=== PATIENT | male | born 1960 | race Caucasian/White ===

== ENCOUNTER → 2016-12-17 | Outpatient (CLI) | payer OTHER ==
--- NOTE | 2016-12-17 16:42 | CT ---
EXAMINATION TYPE: CT chest wo con DATE OF EXAM: 12/17/2016 1:53 PM COMPARISON: 01/31/2015 HISTORY: Patient complains of difficulty breathing. CT DLP: 863 mGycm, Automated exposure control for dose reduction was used. CONTRAST: None TECHNIQUE: Axial images were obtained at 5 mm thick sections. Reconstructed images are reviewed on [employer] computer in the coronal plane. FINDINGS: Portion of the thyroid visualized is normal. Pneumonitis change may be at the left base. Underlying small masses may be present. Some mild peribro nchial thickening is not excluded in the lower lung dee. Remainder of the chest is clear There is a 1.2 cm lymph node in the pretracheal space near the level of the parvin. A few small shod dy lymph nodes are the pretracheal space more superior. A 1.1 cm subcarinal lymph node may be present . Calcified lymph node may be present in the aortopulmonic window and left perihilar region. The asce nding aorta diameter at the level of the main pulmonary artery is 3.1 cm. The main pulmonary artery diameter at the bifurcation is 2.[address] sections are obtained through the upper abdomen. There is mild fatty infiltration througho ut the liver. Findings within the chest are an interval finding. If there is sufficient clinical suspicion, PET sca n could be performed to evaluate for neoplasm. The left basilar findings however borderline in size with the largest measuring 0.8 cm which is near the threshold for PET visualization IMPRESSIONS: 1. Pneumonitis and/or focal nodularity just above the left diaphragm. Finding is nonspecific. Atelect asis pneumonia and masses within the differential. Follow-up to clearing is recommended. 2. Mildly prominent lymph nodes within the mediastinum.
== END | disposition home or self-care (01) ==
LOC: RADCTMAIN 13:33
PROVIDERS: ATTEND Internal Medicine Pulmonary Disease
DX: J18.9 Pneumonia, unspecified organism (principal)
CPT/HCPCS: 71250

== ENCOUNTER → 2016-12-31 | Outpatient (CLI) | payer OTHER ==
[2017-01-04 08:20] LABS: Cotinine 302.6 ng/mL (<2.0); Nicotine 19.8 ng/mL (<2.0)
== END | disposition home or self-care (01) ==
LOC: LABWHC1 10:26
PROVIDERS: ATTEND Internal Medicine Pulmonary Disease
DX: F17.200 Nicotine dependence, unspecified, uncomplicated (principal)
CPT/HCPCS: 36415; G0480; 80323

== ENCOUNTER → 2017-04-12 | Outpatient (CLI) | payer OTHER ==
--- NOTE | 2017-04-14 10:40 | ECHOF ---
Referral Reason:I25.10 cardiovascular disease MEASUREMENTS -------- HEIGHT: 177.8 cm WEIGHT: 111.1 kg BP: 128/63 RVIDd: 3.5 cm (< 3.3) IVSd: 1.0 cm (0.6 - 1.1) LVIDd: 5.3 cm (3.9 - 5.3) LVPWd: 1.0 cm (0.6 - 1.1) IVSs: 1.4 cm LVIDs: 3.3 cm LVPWs: 1.4 cm LA Diam: 3.4 cm (2.7 - 3.8) LAESV Index (A-L): 14.58 ml/m Ao Diam: 3.5 cm (2.0 - 3.7) AV Cusp: 2.1 cm (1.5 - 2.6) MV EXCURSION: 11.800 mm (> 18.000) MV EF SLOPE: 100 mm/s (70 - 150) EPSS: 0.7 cm MV E Maikel: 1.24 m/s MV DecT: 185 ms MV A Maikel: 0.78 m/s MV E/A Ratio: 1.59 AV maxP.37 mmHg AV meanP.64 mmHg RAP: 5.00 mmHg RVSP: 25.41 mmHg FINDINGS -------- Sinus rhythm. This was a technically adequate study. The left ventricular size is normal. Left ventricular wall thickness is normal. Overall left ventricular systolic function is normal with, an EF between 60 - 65 %. The right ventricle is mildly enlarged. Normal LA size by volume 22+/-6 ml/m2. The right atrium was not well visualized. Aortic valve is trileaflet and is mildly thickened. Mild mitral annular calcification present. Trace tricuspid regurgitation present. Right ventricular systolic pressure is normal at < 35 mmHg. The pulmonic valve was not well visualized. The aortic root size is normal. IVC Not well visulized. The pericardium is normal. CONCLUSIONS -------- 1. Sinus rhythm. 2. Mild mitral annular calcification present. 3. Trace tricuspid regurgitation present. 4. Right ventricular systolic pressure is normal at < 35 mmHg. 5. The pulmonic valve was not well visualized. 6. The aortic root size is normal. 7. IVC Not well visulized. 8. The pericardium is normal. 9. This was a technically adequate study. 10. The left ventricular size is normal. 11. Left ventricular wall thickness is normal. 12. Overall left ventricular systolic function is normal with, an EF between 60 - 65 %. 13. The right ventricle is mildly enlarged. 14. Normal LA size by volume 22+/-6 ml/m2. 15. The right atrium was not well visualized. 16. Aortic valve is trileaflet and is mildly thickened. CONDITIONING MACHINE OPERATOR: Leslee Hood RDCS
== END | disposition home or self-care (01) ==
LOC: RADECHMAIN 11:35
PROVIDERS: ATTEND Family Medicine
DX: I07.1 Rheumatic tricuspid insufficiency (principal); I35.8 Other nonrheumatic aortic valve disorders; I05.9 Rheumatic mitral valve disease, unspecified; I25.10 Atherosclerotic heart disease of native coronary artery without angina pectoris
CPT/HCPCS: 93306

== ENCOUNTER → 2018-02-24 | Outpatient (CLI) | payer OTHER ==
--- NOTE | 2018-02-25 10:06 | CT ---
EXAMINATION TYPE: CT lumbar spine wo con DATE OF EXAM: 02/24/2018 COMPARISON: Prior lumbar spine CT 01/29/2015 HISTORY: Patient complains of continued low back pain. CT DLP: 975 mGycm Automated exposure control for dose reduction was used. An unenhanced CT of the lumbar spine was performed. Bone and soft tissue window settings are submitt ed as well as coronal and sagittal reconstructions. FINDINGS: Similar to prior exam. Multilevel spondylosis is present. Loss of disc height present L5-S1, L4-5, L3 -4. Posterior spinal fusion changes as present as on prior exam, L4-5 and S1. Vertebral body height a nd alignment are maintained. There is a mild spinal curvature. Multilevel laminectomies present at th e levels of patient's spinal fusion as on prior exam. Liver shows low attenuation possibly due to hep atic steatosis. L1-L2: Posterior extension of endplate disc complex effaces the anterior thecal sac, no significant s jony stenosis or foraminal encroachment. L2-L3: There is facet arthropathy change. No significant central stenosis or foraminal encroachment. No obvious disc herniation. L3-L4: Facet arthropathy causes some posterior lateral mass effect on the thecal sac, lateral recess greater on the right than on the left. No significant foraminal encroachment or central canal stenosi s. L4-L5: Similar to prior exam there is posterior extension of endplate disc complex possibly contact t he anterior thecal sac. L5-S1: Stable degenerative disc changes are present, posterior extension of endplate disc complex flowers s not show significant spinal stenosis but could possibly contact the proximal S1 nerve roots. There is artifact that limits evaluation of the spinal canal. Lateral extension endplate disc complex compr omises the foramina somewhat as on prior exam. IMPRESSION: No paraspinal masses are identified. Lumbar segments are intact. Postop changes, facet arthropathy, degenerative disc disease are similar to prior exam.
== END ==
LOC: RADCTMAIN 17:46
PROVIDERS: ATTEND Family Medicine
DX: M51.36 Other intervertebral disc degeneration, lumbar region (principal); M46.96 Unspecified inflammatory spondylopathy, lumbar region; Z98.890 Other specified postprocedural states; Z88.6 Allergy status to analgesic agent
CPT/HCPCS: 72131

== ENCOUNTER → 2018-04-05 | Outpatient (CLI) | payer OTHER ==
--- NOTE | 2018-04-05 14:50 | CT ---
EXAMINATION TYPE: CT chest w con DATE OF EXAM: 04/05/2018 COMPARISON: CT chest June 19, 2017 HISTORY: Alpha 1-antitrypsin [id number] COPD R06.02 SOB all per order. Wheezing during visits wi th physician. CT DLP: 724.3 mGycm. Automated Exposure Control for Dose Reduction was Utilized. TECHNIQUE: CT scan of the thorax is performed following with IV Contrast, patient injected with 100 mL of Isovue 300. FINDINGS: LUNGS: The lungs are grossly clear, there is no concerning parenchymal mass or nodule identified on c urrent study. Interval resolution of focal nodular opacities left lung base from prior CT. There is no pleural effusion or pneumothorax seen. The tracheobronchial tree is patent. MEDIASTINUM: There are no greater than 1 cm hilar or mediastinal lymph nodes. No cardiomegaly or pe ricardial effusion is seen. OTHER: Liver is diffusely low dense consistent with fatty infiltration is redemonstrated. There is mo derate to severe multilevel spurring in the thoracic spine. Bilateral gynecomastia is again seen. IMPRESSION: No significant acute or chronic pulmonary process on current exam.
== END | disposition home or self-care (01) ==
LOC: RADCTMAIN 13:35
PROVIDERS: ATTEND Family Medicine
DX: J44.9 Chronic obstructive pulmonary disease, unspecified (principal); E88.01 Alpha-1-antitrypsin deficiency; Z88.6 Allergy status to analgesic agent
CPT/HCPCS: 71260; Q9967

== ENCOUNTER 2020-07-03 19:01 | Inpatient (IN) | payer OTHER ==
[2020-07-03] MEDS ORDERED: IPRATROPIUM-ALBUTEROL 3 ML NEB INHALATION STA (19:17)
[2020-07-03] MEDS ORDERED: methylPREDNISolone SOD SUCCI 125 MG/2 ML VIAL IV STA (19:17)
--- NOTE | 2020-07-03 19:26 | ED ---
General Adult HPI - General Chief complaint: Shortness of Breath Stated complaint: SOB Time Seen by Provider: 07/03/20 19:13 Source: patient, EMS, RN notes reviewed Mode of arrival: EMS Limitations: no limitations - History of Present Illness Initial comments: Patient is a pleasant 59-year-old male presenting to the emergency Department with complaints of difficulty in breathing. Patient is a poor historian. Patient was smoking when EMS arrived with low pulse ox of 60. Patient amiss to having a cough recently with occasional white or brown sputum. No leg pain or leg swelling. No chest pain. Patient does have history of chronic lung problems, COPD with similar symptoms. - Related Data Home Medications Medication Instructions Recorded Confirmed Baclofen [Lioresal] 20 mg PO HS 02/04/15 05/02/15 HYDROcodone/APAP 10-325MG [[place] 1 each PO Q6H PRN 02/04/15 05/02/15 10] Albuterol Nebulized [Ventolin 1 applic INHALATION DIRECTED PRN 05/01/15 05/02/15 Nebulized] Ergocalciferol [Vitamin D2 50,000 unit PO WE 05/01/15 05/02/15 (DRISDOL)] HYDROcodone/APAP 10-325MG [[place] 1 tab PO DIRECTED PRN 05/01/15 05/02/15 10-325] hydroCHLOROthiazide 25 mg PO DIRECTED PRN 05/01/15 05/02/15 Previous Rx's Medication Instructions Recorded HYDROcodone/APAP 7.5-325MG [[place] 1 each PO Q4H PRN #60 tab 05/02/15 7.5] Allergies Allergy/AdvReac Type Severity Reaction Status Date / Time ibuprofen Allergy Swelling, Verified 07/03/20 19:23 RASH Review of Systems ROS Statement: Those systems with pertinent positive or pertinent negative responses have been documented in the HPI. ROS Other: All systems not noted in ROS Statement are negative. Constitutional: Denies: fever Eyes: Denies: eye pain ENT: Denies: ear pain Respiratory: Reports: cough, dyspnea Cardiovascular: Denies: chest pain Endocrine: Reports: fatigue Gastrointestinal: Denies: abdominal pain Genitourinary: Denies: dysuria Musculoskeletal: Denies: back pain Skin: Denies: rash Neurological: Denies: weakness Past Medical History Past Medical History: COPD Additional Past Medical History / Comment(s): CHRONIC BACK PAIN, OMAR HERNIA, GO [place], OCCASIONAL PERIPHERAL EDEMA History of Any Multi-Drug Resistant Organisms: None Reported Past Surgical History: Back Surgery Additional Past Surgical History / Comment(s): METAL IN BACK, SURGERY TO OPEN "BLOCKED PENIS" X2 HAS STENT Past Anesthesia/Blood Transfusion Reactions: No Reported Reaction Past Psychological History: No Psychological Hx Reported Smoking Status: Current every day smoker Past Alcohol Use History: Occasional Past Drug Use History: None Reported - Past Family History Mother Family Medical History: No Reported History General Exam Limitations: no limitations General appearance: alert Head exam: Present: normocephalic Eye exam: Present: normal appearance Neck exam: Present: normal inspection Respiratory exam: Present: respiratory distress, wheezes, decreased breath sounds Cardiovascular Exam: Present: regular rate, normal rhythm GI/Abdominal exam: Present: soft. Absent: tenderness Extremities exam: Present: normal inspection Neurological exam: Present: alert Psychiatric exam: Present: normal affect, normal mood Skin exam: Present: normal color Course Vital Signs 07/03/20 07/03/20 07/03/20 19:15 19:20 19:23 Temperature 98.9 F Pulse Rate 110 H 101 H Respiratory 29 H 25 H 22 Rate Blood Pressure 151/78 O2 Sat by Pulse 93 L Oximetry 07/03/20 07/03/20 07/03/20 19:30 20:04 20:58 Temperature Pulse Rate 106 H 87 86 Respiratory 22 24 25 H Rate Blood Pressure 151/78 147/91 O2 Sat by Pulse 92 L 91 L Oximetry EKG Findings - EKG Comments: EKG Findings:: Sinus tachycardia 103. NE 124. QRS 82. QT 320. QTC 419. Normal axis. Normal QRS. No acute ST change. Medical Decision Making - Medical Decision Making Patient reevaluated and somewhat improved. Patient and family updated on results and plan. Case was discussed in detail with Dr. Avalos, who will admit oren whittaker for Dr. Dowd. She also requests consult with Dr. Kim(pulmonary) and Jennifer. - Lab Data Result diagrams: 07/03/20 19:24 07/03/20 19:24 Lab Results 07/03/20 07/03/20 07/03/20 Range/Units 19:24 19:24 19:24 WBC 9.2 (3.8-10.6) k/uL RBC 5.61 (4.30-5.90) m/uL Hgb 17.3 (13.0-17.5) gm/dL Hct 58.3 H* (39.0-53.0) % MCV 104.0 H (80.0-100.0) fL MCH 30.9 (25.0-35.0) pg MCHC 29.7 L (31.0-37.0) g/dL RDW 13.9 (11.5-15.5) % Plt Count 135 L (150-450) k/uL Neutrophils % 76 % Lymphocytes % 11 % Monocytes % 9 % Eosinophils % 1 % Basophils % 1 % Neutrophils # 7.0 (1.3-7.7) k/uL Lymphocytes # 1.0 (1.0-4.8) k/uL Monocytes # 0.8 (0-1.0) k/uL Eosinophils # 0.1 (0-0.7) k/uL Basophils # 0.1 (0-0.2) k/uL Hypochromasia Marked Poikilocytosis Slight Macrocytosis Slight Sodium 134 L (137-145) mmol/L Potassium 5.4 H (3.5-5.1) mmol/L Chloride 91 L (98-107) mmol/L Carbon Dioxide 38 H (22-30) mmol/L Anion Gap 3 mmol/L BUN 14 (9-20) mg/dL Creatinine 0.52 L (0.66-1.25) mg/dL Est GFR (CKD-EPI)AfAm >90 (>60 ml/min/1.73 sqM) Est GFR (CKD-EPI)NonAf >90 (>60 ml/min/1.73 sqM) Glucose 114 H (74-99) mg/dL Plasma Lactic Acid Prakash 1.3 (0.7-2.0) mmol/L Calcium 8.3 L (8.4-10.2) mg/dL Total Bilirubin 1.3 (0.2-1.3) mg/dL AST 42 (17-59) U/L ALT 21 (4-49) U/L Alkaline Phosphatase 96 (38-126) U/L NT-Pro-B Natriuret Pep pg/mL Total Protein 7.7 (6.3-8.2) g/dL Albumin 3.8 (3.5-5.0) g/dL 07/03/20 Range/Units 19:24 WBC (3.8-10.6) k/uL RBC (4.30-5.90) m/uL Hgb (13.0-17.5) gm/dL Hct (39.0-53.0) % MCV (80.0-100.0) fL MCH (25.0-35.0) pg MCHC (31.0-37.0) g/dL RDW (11.5-15.5) % Plt Count (150-450) k/uL Neutrophils % % Lymphocytes % % Monocytes % % Eosinophils % % Basophils % % Neutrophils # (1.3-7.7) k/uL Lymphocytes # (1.0-4.8) k/uL Monocytes # (0-1.0) k/uL Eosinophils # (0-0.7) k/uL Basophils # (0-0.2) k/uL Hypochromasia Poikilocytosis Macrocytosis Sodium (137-145) mmol/L Potassium (3.5-5.1) mmol/L Chloride (98-107) mmol/L Carbon Dioxide (22-30) mmol/L Anion Gap mmol/L BUN (9-20) mg/dL Creatinine (0.66-1.25) mg/dL Est GFR (CKD-EPI)AfAm (>60 ml/min/1.73 sqM) Est GFR (CKD-EPI)NonAf (>60 ml/min/1.73 sqM) Glucose (74-99) mg/dL Plasma Lactic Acid Prakash (0.7-2.0) mmol/L Calcium (8.4-10.2) mg/dL Total Bilirubin (0.2-1.3) mg/dL AST (17-59) U/L ALT (4-49) U/L Alkaline Phosphatase (38-126) U/L NT-Pro-B Natriuret Pep 506 pg/mL Total Protein (6.3-8.2) g/dL Albumin (3.5-5.0) g/dL - Radiology Data Radiology results: image reviewed (Chest x-ray shows moderate pleural effusion) Disposition Clinical Impression: Acute exacerbation of chronic obstructive pulmonary disease, Pleural effusion Disposition: ADMITTED IP TO THIS HOSP Is patient prescribed a controlled substance at d/c from ED?: No Referrals: Ric Mcgarry DO [Primary Care Provider] - 1-2 days Decision Time: 21:29
[2020-07-03 20:02] LABS: ALT 21 U/L (4-49); AST 42 U/L (17-59); African American GFR (CKD) >90 (>60 ml/min/1.73 sqM); Albumin 3.8 g/dL (3.5-5.0); Alkaline Phosphatase 96 U/L (38-126); Anion Gap 3 mmol/L; Blood Urea Nitrogen 14 mg/dL (9-20); Calcium 8.3 mg/dL (8.4-10.2); Chloride 91 mmol/L (98-107); Glucose 114 mg/dL (74-99); Non-African American GFR(CKD) >90 (>60 ml/min/1.73 sqM); Potassium 5.4 mmol/L (3.5-5.1); Sodium 134 mmol/L (137-145); Total Bilirubin 1.3 mg/dL (0.2-1.3); Total Protein 7.7 g/dL (6.3-8.2)
[2020-07-03 20:08] LABS: Carbon Dioxide 38 mmol/L (22-30)
[2020-07-03 20:17] LABS: Basophils # (A) 0.1 k/uL (0-0.2); Basophils % (A) 1 %; Eosinophils # (A) 0.1 k/uL (0-0.7); Eosinophils % (A) 1 %; HGB 17.3 gm/dL (13.0-17.5); Hypochromasia Marked; Lymphocytes % (A) 11 %; MCH 30.9 pg (25.0-35.0); MCHC 29.7 g/dL (31.0-37.0); Macrocytosis Slight; Mean Platelet Volume 8.7; Monocytes # (A) 0.8 k/uL (0-1.0); Monocytes % (A) 9 %; Neutrophils % (A) 76 %; Platelet Count 135 k/uL (150-450); Poikilocytosis Slight; RBC 5.61 m/uL (4.30-5.90); RDW 13.9 % (11.5-15.5); WBC 9.2 k/uL (3.8-10.6)
[2020-07-03 20:20] LABS: HCT 58.3 % (39.0-53.0)
--- NOTE | 2020-07-03 20:57 | XR ---
EXAMINATION TYPE: XR chest 2V DATE OF EXAM: 07/03/2020 COMPARISON: None INDICATION: Difficulty breathing TECHNIQUE: Frontal and lateral views of the chest are obtained. FINDINGS: The heart size is normal. The pulmonary vasculature is prominent. Moderate right pleural effusion is present.. IMPRESSION: 1. Right pleural effusion.
[2020-07-03] MEDS ORDERED: IPRATROPIUM-ALBUTEROL 3 ML NEB INHALATION PRN (21:30)
[2020-07-03 21:31] LABS: INR 1.1 (<1.2)
[2020-07-03] MEDS ORDERED: BACLOFEN 10 MG TAB PO SCH (23:45)
[2020-07-04] MEDS: HYDROcodone/APAP 10-325MG 1 EACH TAB PO PRN ×2 (00:01→20:37)
[2020-07-04] MEDS: ATORVASTATIN 40 MG TAB PO SCH ×2 (00:01→20:40)
[2020-07-04] MEDS: CARBIDOPA-LEVODOPA 25-100 MG 1 EACH TAB PO SCH ×2 (00:01→20:40)
[2020-07-04] MEDS: methylPREDNISolone SOD SUCCI 125 MG/2 ML VIAL IV SCH ×4 (00:02→17:55)
[2020-07-04 00:49] LABS: Appearance,Urine Clear (Clear); Bilirubin,Urine 1+ (Negative); Blood,Urine Negative (Negative); Color,Urine Yellow; Glucose,Urine (UA) Negative (Negative); Hyaline Casts,Urine 1 /lpf (0-2); Ketones,Urine 1+ (Negative); Leukocyte Esterase,Urine Negative (Negative); Mucus,Urine Occasional /hpf; Nitrite,Urine Negative (Negative); Protein,Urine 1+ (Negative); RBC,Urine 1 /hpf (0-5); Specific Gravity,Urine 1.026 (1.001-1.035); Squamous Epithelial Cell,Urine <1 /hpf (0-4); WBC,Urine <1 /hpf (0-5)
[2020-07-04] MEDS ORDERED: LORazepam 2 MG/ML INJ IV STA ×2 (06:01→06:19)
[2020-07-04] MEDS: IPRATROPIUM-ALBUTEROL 3 ML NEB INHALATION SCH ×4 (07:27→19:42)
[2020-07-04] MEDS: NICOTINE 21MG/24HR PATCH TRANSDERM SCH (09:04)
[2020-07-04 11:18] LABS: ABG Base Excess 20.8 mmol/L; ABG Oxygen Saturation 89.8 % (94-97); ABG PH 7.27 (7.35-7.45); ABG PO2 61 mmHg (83-108); ABG TCO2 51 mmol/L (19-24); Allen Test Performed? Yes
--- NOTE | 2020-07-04 11:28 | P.HPIM ---
History of Present Illness H&P Date: 07/04/20 Chief Complaint: MAX HISTORY OF PRESENT ILLNESS This is a 59-year-old obese male patient of Dr. Mcgarry and Dr. ROSALBA Ott with past medical history of COPD, possible alpha-1 antitrypsin deficiency--will need to clarify, probable obstructive sleep apnea on oxygen at night, tobacco use and dependence, daily alcohol use, chronic back pain. Patient apparently developed increasing difficulty with breathing and EMS was called to his home phone pulse ox to be 60. Patient had some recent white or brown sputum production. Patient was afebrile, heart rate 110, blood pressure 151/78, pulse ox 93%, respiratory rate 29. EKG was a sinus tachycardia with no acute ST changes. WBC 9.2, hemoglobin 17.3, hematocrit 0.3, platelet count 135. Sodium 134, potassium 5.4, chloride 91, CO2 38, BUN 14 and creatinine 0.52. Blood sugar 114. Liver function tests normal. ProBNP 506. Chest x-ray reveals right pleural effusion. Patient was started on Solu-Medrol, DuoNeb treatments. Patient apparently was agitated in the emergency center and received 2 doses of Ativan IV 1 mg each 20 minutes apart. Patient was brought up to the cardiac stepdown unit and has been sleeping and unable to be awakened. He is currently on BiPAP. REVIEW OF SYSTEMS Unable to obtain due to patient's mental status. SOCIAL HISTORY Patient is a smoker 2 packs per day for 40 years. Patient drinks 7-10 beers per day for 40 years. He lives at home with his . He has a nebulizer at home. He has home O2 that he uses at night. No CPAP at home. FAMILY HISTORY Father at age 74 from some type of cancer. Mother is alive at age 82 with no major medical problems. Patient has 3 siblings. One is from a fall. Other siblings have no major medical problems. Patient has 4 children with no major medical problems. PHYSICAL EXAMINATION Gen: This is a 59-year-old obese male patient. He is resting in bed with BiPAP in place. He does not appear to be in any respiratory distress. HEENT: Head is atraumatic, normocephalic. Pupils equal, round. Sclerae is a nicteric. NECK: Supple. No JVD. No lymphadenopathy. No thyromegaly. LUNGS: Diminished with inspiratory and expiratory wheezes, rhonchi. No intercostal retractions. HEART: Regular rate and rhythm. No murmur. ABDOMEN: Soft. Bowel sounds are present. No masses. No tenderness. EXTREMITIES: No pedal edema. No calf tenderness. NEUROLOGICAL: Patient is somnolent and unable to wake up with verbal stimuli. ASSESSMENT AND PLAN 1. Acute on chronic hypoxic and hypercapnic respiratory failure secondary to pleural effusion, COPD exacerbation, obstructive sleep apnea. Consult with pulmonary medicine. Continue DuoNeb treatments 4 times daily and every 4 hours as needed, Lasix 40 mg IV every 8 hours, Solu-Medrol 60 mg IV every 6 hours, Pulmicort twice daily. 2. Chronic hypoxic respiratory failure. Patient apparently is to wear oxygen around the clock but only uses at nighttime at 2 L. 3. Suspected obstructive sleep apnea. 4. Polycythemia. Repeat CBC tomorrow. 5. Thrombocytopenia of unclear etiology. 6. Somnolent secondary to 2 doses of IV Ativan. Monitor closely. 7. Tobacco use and dependence. Nicotine patch. 8. Hyperlipidemia. Continue Lipitor 40 mg at bedtime. 9. Chronic back pain. Continue baclofen at reduced dose of 10 mg at bedtime as needed. Hold [place] 10. 10. Chronic gout. Continue allopurinol. 11. Parkinson's disease. Continue Sinemet one at bedtime. 12. Alcohol abuse. Reassess tomorrow. Most likely patient will need to be on CIWA protocol. 13. DVT prophylaxis. Heparin subcu. 14. GI prophylaxis. Protonix. Patient will be admitted to the hospital for a minimum of 2 night stay. Discharge plan: To be determined. Impression and plan of care have been directed as dictated by the signing physician. Janette Jiménez nurse practitioner acting as scribe for signing physician. Past Medical History Past Medical History: COPD Additional Past Medical History / Comment(s): CHRONIC BACK PAIN, OMAR HERNIA, GOUT, OCCASIONAL PERIPHERAL EDEMA History of Any Multi-Drug Resistant Organisms: None Reported Past Surgical History: Back Surgery Additional Past Surgical History / Comment(s): METAL IN BACK, SURGERY TO OPEN "BLOCKED PENIS" X2 HAS STENT Past Anesthesia/Blood Transfusion Reactions: No Reported Reaction Past Psychological History: No Psychological Hx Reported Smoking Status: Current every day smoker Past Alcohol Use History: Occasional Past Drug Use History: None Reported - Past Family History Mother Family Medical History: No Reported History Medications and Allergies Home Medications Medication Instructions Recorded Confirmed Type Baclofen [Lioresal] 20 mg PO HS 02/04/15 07/03/20 History Albuterol Nebulized [Ventolin 2.5 mg INHALATION RT-QID PRN 05/01/15 07/03/20 History Nebulized] Ergocalciferol [Vitamin D2 50,000 unit PO WE 05/01/15 07/03/20 History (DRISDOL)] HYDROcodone/APAP 10-325MG [[place] 1 tab PO QID 05/01/15 07/03/20 History 10-325] Albuterol Inhaler [Ventolin Hfa 2 puff INHALATION RT-QID PRN 07/03/20 07/03/20 History Inhaler] Allopurinol [Zyloprim] 300 mg PO DAILY 07/03/20 07/03/20 History Carbidopa-Levodopa 25-100 mg 1 tab PO HS 07/03/20 07/03/20 History [Sinemet 25-100] Furosemide [Lasix] 40 mg PO BID 07/03/20 07/03/20 History Magnesium Oxide [Mag-Ox] 250 mg PO DAILY 07/03/20 07/03/20 History Naproxen [Naprosyn] 500 mg PO BID 07/03/20 07/03/20 History Simvastatin 40 mg PO HS 07/03/20 07/03/20 History Beclomethasone Dip 80 Mcg/Puff 1 puff INHALATION RT-BID 07/04/20 07/04/20 History [Qvar 80 mcg] Allergies Allergy/AdvReac Type Severity Reaction Status Date / Time ibuprofen Allergy Swelling, Verified 07/03/20 22:53 RASH Physical Exam Vitals: Vital Signs Temp Pulse Resp BP Pulse Ox 07/04/20 07:46 94 07/04/20 07:35 90 07/04/20 06:45 81 91 L 07/04/20 06:28 90 89 L 07/04/20 06:00 92 167/86 89 L 07/04/20 04:39 77 18 166/90 91 L 07/04/20 00:16 98.2 F 07/04/20 00:00 91 24 151/93 92 L 07/03/20 23:30 87 30 H 144/67 07/03/20 23:00 83 31 H 168/86 07/03/20 22:30 96 34 H 129/64 88 L 07/03/20 22:00 81 26 H 143/87 91 L 07/03/20 21:30 84 22 149/82 94 L 07/03/20 21:00 84 26 H 147/91 90 L 07/03/20 20:58 86 25 H 147/91 91 L 07/03/20 20:30 87 19 151/78 93 L 07/03/20 20:04 87 24 151/78 92 L 07/03/20 20:00 93 25 H 151/78 92 L 07/03/20 19:30 106 H 22 151/78 92 L 07/03/20 19:23 101 H 22 07/03/20 19:20 25 H 07/03/20 19:15 98.9 F 110 H 29 H 151/78 93 L 07/03/20 19:13 88 L Intake and Output 07/03/20 07/04/20 07/04/20 22:59 06:59 14:59 Other: Weight 112.491 kg Results CBC & Chem 7: 07/05/20 03:40 07/05/20 03:40 Labs: Abnormal Lab Results - Last 24 Hours (Table) 07/03/20 07/03/20 07/04/20 Range/Units 19:24 19:24 00:23 Hct 58.3 H* (39.0-53.0) % MCV 104.0 H (80.0-100.0) fL MCHC 29.7 L (31.0-37.0) g/dL Plt Count 135 L (150-450) k/uL Sodium 134 L (137-145) mmol/L Potassium 5.4 H (3.5-5.1) mmol/L Chloride 91 L (98-107) mmol/L Carbon Dioxide 38 H (22-30) mmol/L Creatinine 0.52 L (0.66-1.25) mg/dL Glucose 114 H (74-99) mg/dL Calcium 8.3 L (8.4-10.2) mg/dL Urine Protein 1+ H (Negative) Urine Ketones 1+ H (Negative) Urine Bilirubin 1+ H (Negative) Urine Mucus Occasional H (None) /hpf
[2020-07-04 11:53] LABS: Glucose,Whole Blood 136 mg/dL (75-99)
[2020-07-04 12:27] LABS: ABG HCO3 48 mmol/L (21-25); ABG PCO2 104 mmHg (35-45)
[2020-07-04] MEDS ORDERED: INSULIN ASPART (NovoLOG) 100 UNIT/ML VIAL SQ SCH (12:30)
[2020-07-04 12:32] LABS: Partial Thromboplastin Time 22.7 sec (22.0-30.0)
--- NOTE | 2020-07-04 12:52 | P.CNPUL ---
History of Present Illness Consult date: 07/04/20 Requesting physician: Mckenzie Avalos Reason for consult: other (Acute hypoxic and hypercapnic respiratory failure) Chief complaint: Shortness of breath History of present illness: This is a 59-year-old white male with history of COPD, possible alpha-1 antitrypsin deficiency, history of obstructive sleep apnea syndrome, patient uses oxygen at night. History of alcohol abuse, alcoholism, chronic back pain, patient was brought in by EMS early this morning with complaints of increased shortness of breath. Upon EMS arrival to his house his pulse ox was 60 and the patient was noted to be smoking cigarettes. Patient was evaluated in the ER, and he was noted to have abnormal chest x-ray with right-sided pleural effusion. The patient himself could not give any clear history. Patient was noted to have episodes of extreme agitation in the ER, he was given Ativan IV push 2 and he was admitted to the regular medical floor. I happened to be rounding on the floor at the time shortly after the patient arrived to the medical floor, and I noted the patient was on BiPAP, he was lethargic, intermittently waking up, confused, and his ABG which I ordered showed a pO2 of 61 pCO2 of 104 and pH of 7.27. Chest x-ray showed right-sided pleural effusion and I recommended ultrasound for possible thoracentesis. I have also made arrangements for the patient to be transferred immediately to the ICU. His BiPAP settings were adjusted placed on IPAP of 14 and EPAP of 5 and FiO2 was increased to 45%, and patient was transferred to the ICU minutes after I evaluated the patient. Previous echocardiogram from 2017 was noted to be normal. CT of the chest from 2018 was basically unremarkable. Chest x-ray on this admission showed a moderate sized right-sided pleural effusion which is relatively new. Review of Systems ROS unobtainable: due to mental status Past Medical History Past Medical History: COPD Additional Past Medical History / Comment(s): CHRONIC BACK PAIN, OMAR HERNIA, GOUT, OCCASIONAL PERIPHERAL EDEMA History of Any Multi-Drug Resistant Organisms: None Reported Past Surgical History: Back Surgery Additional Past Surgical History / Comment(s): METAL IN BACK, SURGERY TO OPEN "BLOCKED PENIS" X2 HAS STENT Past Anesthesia/Blood Transfusion Reactions: No Reported Reaction Past Psychological History: No Psychological Hx Reported Smoking Status: Current every day smoker Past Alcohol Use History: Occasional Past Drug Use History: None Reported - Past Family History Mother Family Medical History: No Reported History Medications and Allergies Home Medications Medication Instructions Recorded Confirmed Type Baclofen [Lioresal] 20 mg PO HS 02/04/15 07/03/20 History Albuterol Nebulized [Ventolin 2.5 mg INHALATION RT-QID PRN 05/01/15 07/03/20 History Nebulized] Ergocalciferol [Vitamin D2 50,000 unit PO WE 05/01/15 07/03/20 History (DRISDOL)] HYDROcodone/APAP 10-325MG [Aurora 1 tab PO QID 05/01/15 07/03/20 History 10-325] Albuterol Inhaler [Ventolin Hfa 2 puff INHALATION RT-QID PRN 07/03/20 07/03/20 History Inhaler] Allopurinol [Zyloprim] 300 mg PO DAILY 07/03/20 07/03/20 History Carbidopa-Levodopa 25-100 mg 1 tab PO HS 07/03/20 07/03/20 History [Sinemet 25-100] Furosemide [Lasix] 40 mg PO BID 07/03/20 07/03/20 History Magnesium Oxide [Mag-Ox] 250 mg PO DAILY 07/03/20 07/03/20 History Naproxen [Naprosyn] 500 mg PO BID 07/03/20 07/03/20 History Simvastatin 40 mg PO HS 07/03/20 07/03/20 History Beclomethasone Dip 80 Mcg/Puff 1 puff INHALATION RT-BID 07/04/20 07/04/20 History [Qvar 80 mcg] Allergies Allergy/AdvReac Type Severity Reaction Status Date / Time ibuprofen Allergy Swelling, Verified 07/03/20 22:53 RASH Physical Exam Vitals: Vital Signs Temp Pulse Pulse Resp BP BP Pulse Ox 07/04/20 12:00 98.3 F 80 25 H 137/84 89 L 07/04/20 11:16 90 07/04/20 11:06 96 07/04/20 08:00 98.6 F 72 24 138/79 89 L 07/04/20 07:46 94 07/04/20 07:35 90 07/04/20 06:45 81 91 L 07/04/20 06:28 90 89 L 07/04/20 06:00 92 167/86 89 L 07/04/20 04:39 77 18 166/90 91 L 07/04/20 01:00 90 27 H 150/68 07/04/20 00:16 98.2 F 07/04/20 00:15 92 34 H 147/81 91 L 07/04/20 00:00 91 24 151/93 92 L 07/03/20 23:30 87 30 H 144/67 07/03/20 23:00 83 31 H 168/86 07/03/20 22:30 96 34 H 129/64 88 L 07/03/20 22:00 81 26 H 143/87 91 L 07/03/20 21:30 84 22 149/82 94 L 07/03/20 21:00 84 26 H 147/91 90 L 07/03/20 20:58 86 25 H 147/91 91 L 07/03/20 20:30 87 19 151/78 93 L 07/03/20 20:04 87 24 151/78 92 L 07/03/20 20:00 93 25 H 151/78 92 L 07/03/20 19:30 106 H 22 151/78 92 L 07/03/20 19:23 101 H 22 07/03/20 19:20 25 H 07/03/20 19:15 98.9 F 110 H 29 H 151/78 93 L 07/03/20 19:13 88 L Intake and Output 07/03/20 07/04/20 07/04/20 22:59 06:59 14:59 Other: Weight 112.491 kg 112.491 kg Gen: Physical exam revealed a 59-year-old white male on BiPAP, somnolent, intermittently arousable, follows simple instructions, but definitely confused. Head: Atraumatic, normocephalic. EENT: PERRLA, EOMI, no icterus, no neck masses, no rigidity. NECK: No neck masses. No stridor. LUNGS: Crackles and rhonchi noted at the right base, wheezing also noted bilaterally. HEART: Distant S1 and S2, no S3 gallop, no murmur. ABDOMEN: Obese, Soft. Tender, no megaly, no rebound, no guarding.. EXTREMITIES: Mild clubbing, no edema, no cyanosis. NEUROLOGICAL: Somnolent, arousable, follows simple instructions but quite confused. Psychiatric: Blunted mood and affect, borderline mental status and intermittent somnolence. Skin: No rashes. Results - Laboratory Findings CBC and BMP: 07/03/20 19:24 07/03/20 19:24 ABG ABG pH 7.27 (7.35-7.45) L 07/04/20 11:15 ABG pCO2 104 mmHg (35-45) H* 07/04/20 11:15 ABG pO2 61 mmHg (83-108) L 07/04/20 11:15 ABG O2 Saturation 89.8 % (94-97) L 07/04/20 11:15 PT/INR, D-dimer INR 1.1 (<1.2) 07/03/20 21:08 Abnormal lab findings: Abnormal Labs 07/03/20 07/03/20 07/04/20 19:24 19:24 00:23 Hct 58.3 H* MCV 104.0 H MCHC 29.7 L Plt Count 135 L ABG pH ABG pCO2 ABG pO2 ABG HCO3 ABG Total CO2 ABG O2 Saturation Sodium 134 L Potassium 5.4 H Chloride 91 L Carbon Dioxide 38 H Creatinine 0.52 L Glucose 114 H POC Glucose (mg/dL) Calcium 8.3 L Urine Protein 1+ H Urine Ketones 1+ H Urine Bilirubin 1+ H Urine Mucus Occasional H 07/04/20 07/04/20 11:15 11:51 Hct MCV MCHC Plt Count ABG pH 7.27 L ABG pCO2 104 H* ABG pO2 61 L ABG HCO3 48 H* ABG Total CO2 51 H ABG O2 Saturation 89.8 L Sodium Potassium Chloride Carbon Dioxide Creatinine Glucose POC Glucose (mg/dL) 136 H Calcium Urine Protein Urine Ketones Urine Bilirubin Urine Mucus - Diagnostic Findings Chest x-ray: image reviewed (Right-sided pleural effusion) Assessment and Plan Assessment: Impression: Acute on chronic hypoxic and hypercapnic respiratory failure secondary to COPD exacerbation, also secondary to obesity/hypoventilation syndrome and obstructive sleep apnea. Also secondary to right pleural effusion etiology is not clear at this point. Acute exacerbation of COPD. Obstructive sleep apnea syndrome. Obesity/hypoventilation syndrome. Right-sided pleural effusion, will require diagnostic and possibly therapeutic thoracentesis. Acute CO2 narcosis and acute metabolic encephalopathy secondary to CO2 narcosis secondary to COPD. And likely exacerbated by the Ativan given earlier in the ER before transferring the patient to the floor. History of tobacco dependence syndrome. Dyslipidemia. Chronic back pain. Alcoholism and history of alcohol abuse. Chronic gout. Parkinson's disease. Recommendation: Transfer patient to ICU. Continue BiPAP, however the settings have been changed. And will repeat ABG in half an hour after he settles in the ICU. Stat ultrasound of the chest and possible right-sided thoracentesis/diagnostic and therapeutic. Continue bronchodilators. Continue IV Solu-Medrol. Empiric antibiotics. GI and DVT prophylaxis. Alcohol withdrawal protocol. Titrate oxygen accordingly keep O2 saturation above 90%. However if the patient fails, may require intubation mechanical ventilation. We'll continue to follow closely. Critical care time is 55 minutes Time with Patient: Greater than 30
--- NOTE | 2020-07-04 13:00 | ECHOF ---
Referral Reason:pleural effusion MEASUREMENTS -------- HEIGHT: 177.8 cm WEIGHT: 112.5 kg BP: 138/79 RVIDd: 4.3 cm (< 3.3) IVSd: 1.4 cm (0.6 - 1.1) LVIDd: 4.4 cm (3.9 - 5.3) LVPWd: 1.4 cm (0.6 - 1.1) IVSs: 1.3 cm LVIDs: 3.1 cm LVPWs: 1.8 cm LAESV Index (A-L): 23.18 ml/m Ao Diam: 3.5 cm (2.0 - 3.7) AV Cusp: 1.7 cm (1.5 - 2.6) MV E Maikel: 1.28 m/s MV DecT: 160 ms MV A Maikel: 1.08 m/s MV E/A Ratio: 1.18 AV maxP.41 mmHg AV meanP.94 mmHg RAP: 5.00 mmHg RVSP: 19.90 mmHg FINDINGS -------- This was a technically difficult study with suboptimal views. The left ventricular size is normal. There is moderate concentric left ventricular hypertrophy. O verall left ventricular systolic function is low-normal with, an EF between 50 - 55 %. The right ventricle is moderately enlarged. Normal LA size by volume 22+/-6 ml/m2. The right atrium is mildly enlarged. 5.0mg of Lumason was utilized for enhancement of images Interatrial and interventricular septum intact. The aortic valve was not well visualized. There is no evidence of aortic regurgitation. The mitral valve was not well visualized. No mitral regurgitation. The tricuspid valve was not well visualized. Mild tricuspid regurgitation present. There is no ev idence of pulmonary hypertension. The right ventricular systolic pressure, as measured by Doppler, is 19.90mmHg. The pulmonic valve was not well visualized. The aortic root size is normal. IVC Not well visulized. There is no pericardial effusion. CONCLUSIONS -------- 1. The left ventricular size is normal. 2. There is moderate concentric left ventricular hypertrophy. 3. Overall left ventricular systolic function is low-normal with, an EF between 50 - 55 %. 4. The right ventricle is moderately enlarged. 5. The right atrium is mildly enlarged. 6. Mild tricuspid regurgitation present. [employer] AGENT: Nancy Wills RDCS
[2020-07-04 13:19] VITALS: BMI 35.6
--- NOTE | 2020-07-04 13:27 | US ---
EXAMINATION TYPE: US chest DATE OF EXAM: 07/04/2020 COMPARISON: NONE CLINICAL HISTORY: Markings for thoracentesis by pulmonary staff. TECHNIQUE: Targeted ultrasound of the posterior lower right hemithorax EXAM MEASUREMENTS: Right Pleural Effusion pocket size: 5.9 cm Right skin surface to fluid distance: 4.3 cm Right side marked for possible thoracentesis outside the dept. Left side NOT marked for possible thoracentesis outside the dept. Pulmonologists are able to review the images in the patient?s EMR. Technically difficult. 2 nurse assist, patient of large body habitus. IMPRESSIONS: Right pleural effusion
[2020-07-04] MEDS: INSULIN ASPART (NovoLOG) 100 UNIT/ML VIAL SQ SCH ×2 (14:22→17:15)
[2020-07-04] MEDS ORDERED: FUROSEMIDE 10 MG/ML 4 ML VIAL IV STA (14:50)
[2020-07-04] MEDS ORDERED: LORazepam 2 MG/ML INJ IV PRN ×3 (14:55)
[2020-07-04 14:56] LABS: ABG Base Excess 22.4 mmol/L; ABG Oxygen Saturation 91.9 % (94-97); ABG PCO2 83 mmHg (35-45); ABG PH 7.37 (7.35-7.45); ABG PO2 61 mmHg (83-108); ABG TCO2 50 mmol/L (19-24); Allen Test Performed? Yes
[2020-07-04 14:57] LABS: ABG HCO3 48 mmol/L (21-25)
[2020-07-04 17:05] LABS: Glucose,Whole Blood 147 mg/dL (75-99)
[2020-07-04 19:22] LABS: Hemoglobin A1C 5.7 % (4.0-6.0)
[2020-07-04] MEDS: FORMOTEROL FUMARATE 20 MCG/2 ML NEBU INHALATION SCH (19:42)
[2020-07-04] MEDS: BUDESONIDE 0.5 MG/2 ML NEBU INHALATION SCH (19:42)
[2020-07-04] MEDS: FUROSEMIDE 10 MG/ML 4 ML VIAL IV SCH (20:38)
[2020-07-04] MEDS: HEPARIN SODIUM,PORCINE 5,000 UNIT/ML 1 ML VIAL SQ SCH (20:38)
[2020-07-04] MEDS ORDERED: FUROSEMIDE 10 MG/ML 4 ML VIAL IV SCH (21:31)
[2020-07-05] MEDS: methylPREDNISolone SOD SUCCI 125 MG/2 ML VIAL IV SCH ×4 (00:42→17:04)
[2020-07-05 00:45] LABS: Glucose,Whole Blood 143 mg/dL (75-99)
[2020-07-05] MEDS: HYDROcodone/APAP 10-325MG 1 EACH TAB PO PRN ×3 (02:51→18:29)
[2020-07-05 04:34] LABS: Chloride 84 mmol/L (98-107)
[2020-07-05 04:37] LABS: African American GFR (CKD) >90 (>60 ml/min/1.73 sqM); Blood Urea Nitrogen 19 mg/dL (9-20); Calcium 8.5 mg/dL (8.4-10.2); Glucose 152 mg/dL (74-99); Non-African American GFR(CKD) >90 (>60 ml/min/1.73 sqM); Potassium 4.3 mmol/L (3.5-5.1); Sodium 136 mmol/L (137-145)
[2020-07-05 04:40] LABS: HGB 17.3 gm/dL (13.0-17.5); Hypochromasia Marked; MCH 32.1 pg (25.0-35.0); MCHC 31.4 g/dL (31.0-37.0); MCV 102.4 fL (80.0-100.0); Macrocytosis Slight; Mean Platelet Volume 8.3; Platelet Count 127 k/uL (150-450); RBC 5.38 m/uL (4.30-5.90); RDW 13.9 % (11.5-15.5); WBC 12.3 k/uL (3.8-10.6)
[2020-07-05 04:44] LABS: Anion Gap 5 mmol/L
[2020-07-05 04:51] LABS: HCT 55.1 % (39.0-53.0)
[2020-07-05 04:53] LABS: Carbon Dioxide 47 mmol/L (22-30)
[2020-07-05 05:51] LABS: Band Neutrophils % 5 %; Lymphocytes # (M) 0.37 k/uL (1.0-4.8); Monocytes # (M) 0.49 k/uL (0-1.0); Neutrophils % (M) 89 %; Nucleated Red Blood Cells 0 /100 WBC (0-0); Total Cells Counted 200
[2020-07-05] MEDS ORDERED: INSULIN ASPART (NovoLOG) 100 UNIT/ML VIAL SQ SCH (06:00)
[2020-07-05 06:16] LABS: Glucose,Whole Blood 148 mg/dL (75-99)
[2020-07-05] MEDS: PANTOPRAZOLE 40 MG TABLET PO SCH (07:05)
[2020-07-05] MEDS: BUDESONIDE 0.5 MG/2 ML NEBU INHALATION SCH ×2 (07:27→19:34)
[2020-07-05] MEDS: FORMOTEROL FUMARATE 20 MCG/2 ML NEBU INHALATION SCH ×2 (07:27→19:33)
[2020-07-05] MEDS: IPRATROPIUM-ALBUTEROL 3 ML NEB INHALATION SCH ×4 (07:27→19:34)
[2020-07-05] MEDS: NICOTINE 21MG/24HR PATCH TRANSDERM SCH (09:18)
[2020-07-05] MEDS: FUROSEMIDE 10 MG/ML 4 ML VIAL IV SCH ×2 (09:18→22:00)
[2020-07-05] MEDS: HEPARIN SODIUM,PORCINE 5,000 UNIT/ML 1 ML VIAL SQ SCH ×2 (09:18→22:00)
--- NOTE | 2020-07-05 10:26 | XR ---
EXAMINATION TYPE: XR chest 1V portable DATE OF EXAM: 07/05/2020 CLINICAL HISTORY: Pleural effusion TECHNIQUE: Portable semiupright view of the chest COMPARISON: 07/03/2020 FINDINGS: The cardiomediastinal silhouette is within normal limits for size. Pulmonary vasculature i s mildly congested. Small right pleural effusion which is decreased from 07/03/2020 comparison. Adjace nt right basilar airspace opacities. No pneumothorax. IMPRESSION: Small right pleural effusion decreased from 07/03/2020. Right basilar airspace opacities.
[2020-07-05 11:54] LABS: Glucose,Whole Blood 180 mg/dL (75-99)
[2020-07-05] MEDS: INSULIN ASPART (NovoLOG) 100 UNIT/ML VIAL SQ SCH ×3 (11:59→22:51)
--- NOTE | 2020-07-05 13:14 | P.PN ---
Subjective Progress Note Date: 07/05/20 Principal diagnosis: Acute hypoxic and hypercapnic respiratory failure This is a 59-year-old white male with history of COPD, possible alpha-1 antitrypsin deficiency, history of obstructive sleep apnea syndrome, patient uses oxygen at night. History of alcohol abuse, alcoholism, chronic back pain, patient was brought in by EMS early this morning with complaints of increased s hortness of breath. Upon EMS arrival to his house his pulse ox was 60 and the patient was noted to be smoking cigarettes. Patient was evaluated in the ER, and he was noted to have abnormal chest x-ray with right-sided pleural effusion. The patient himself could not give any clear history. Patient was noted to have episodes of extreme agitation in the ER, he was given Ativan IV push 2 and he was admitted to the regular medical floor. I happened to be rounding on the floor at the time shortly after the patient arrived to the medical floor, and I noted the patient was on BiPAP, he was lethargic, intermittently waking up, confused, and his ABG which I ordered showed a pO2 of 61 pCO2 of 104 and pH of 7.27. Chest x-ray showed right-sided pleural effusion and I recommended ultrasound for possible thoracentesis. I have also made arrangements for the patient to be transferred immediately to the ICU. His BiPAP settings were adjusted placed on IPAP of 14 and EPAP of 5 and FiO2 was increased to 45%, and patient was transferred to the ICU minutes after I evaluated the patient. Previous echocardiogram from 2017 was noted to be normal. CT of the chest from 2018 was basically unremarkable. Chest x-ray on this admission showed a moderate sized right-sided pleural effusion which is relatively new. On 07/05/2020 patient seen in follow-up in the intensive care unit. He is awake and alert, he remains on BiPAP support, he's been diuresed, he is a -2 L over the last 24 hours, today's chest x-ray showed significant improvement in the appearance of right-sided pleural effusion right basilar airspace opacities remain possibly on the basis of atelectasis. No fever or chills, patient was given a trial on nasal cannula, on 6 L pulse ox is 95%, his mentation is appropriate, his current severe scale is 3, patient only required 1 mg of Ativan last night. He is fairly cooperative, no agitation, no diaphoresis, no complaints of headaches, no complaints of visual or auditory hallucinations. Vital signs have been stable overnight. Patient remains on IV steroids, nebulized bronchodilators in addition to IV Lasix. His labs have been reviewed, showing Levatol, 12.3, hemoglobin of 17.3, sodium is 136, potassium is 4.3, chloride is 84, CO2 is 47, BUN is 19 and creatinine 0.55. Objective - Vital Signs Vital signs: Vital Signs Temp 98.9 F 07/05/20 12:00 Pulse 77 07/05/20 12:00 Resp 12 07/05/20 12:00 BP 112/64 07/05/20 12:00 Pulse Ox 95 07/05/20 12:00 Intake & Output 07/04/20 07/05/20 07/05/20 18:59 06:59 18:59 Intake Total 0 355 60 Output Total 1520 905 720 Balance -1520 -550 -660 Weight 112.491 kg 113.7 kg Intake: Oral 0 355 60 Tube Feeding 0 Output: Urine 1520 905 720 Other: Voiding Method Indwelling Catheter Indwelling Catheter Indwelling Catheter - Exam GENERAL EXAM: Alert, very pleasant, 59-year-old white male, currently on BiPAP support, will be given a trial of nasal cannula shortly, awake and alert, responding to questions appropriately, was reported to have intermittent periods of confusion, comfortable in no apparent distress. HEAD: Normocephalic/atraumatic. EYES: Normal reaction of pupils, equal size. Conjunctiva pink, sclera white. NOSE: Clear with pink turbinates. THROAT: No erythema or exudates. NECK: No masses, no JVD, no thyroid enlargement, no adenopathy. CHEST: No chest wall deformity. Symmetrical expansion. LUNGS: Equal air entry with no crackles, wheeze, rhonchi or dullness. CVS: Regular rate and rhythm, normal S1 and S2, no gallops, no murmurs, no rubs ABDOMEN: Soft, nontender. No hepatosplenomegaly, normal bowel sounds, no guarding or rigidity. EXTREMITIES: No clubbing, no edema, no cyanosis, 2+ pulses and upper and lower extremities. MUSCULOSKELETAL: Muscle strength and tone normal. SPINE: No scoliosis or deformity SKIN: No rashes CENTRAL NERVOUS SYSTEM: Alert and oriented -3. No focal deficits, tone is normal in all 4 extremities. PSYCHIATRIC: Alert and oriented -3. Appropriate affect. Intact judgment and insight. - Labs CBC & Chem 7: 07/05/20 03:40 07/05/20 03:40 Labs: Abnormal Lab Results - Last 24 Hours (Table) 07/04/20 07/04/20 07/05/20 Range/Units 14:52 17:03 00:44 WBC (3.8-10.6) k/uL Hct (39.0-53.0) % MCV (80.0-100.0) fL Plt Count (150-450) k/uL Neutrophils # (Manual) (1.3-7.7) k/uL Lymphocytes # (Manual) (1.0-4.8) k/uL ABG pCO2 83 H* (35-45) mmHg ABG pO2 61 L (83-108) mmHg ABG HCO3 48 H* (21-25) mmol/L ABG Total CO2 50 H (19-24) mmol/L ABG O2 Saturation 91.9 L (94-97) % Sodium (137-145) mmol/L Chloride (98-107) mmol/L Carbon Dioxide (22-30) mmol/L Creatinine (0.66-1.25) mg/dL Glucose (74-99) mg/dL POC Glucose (mg/dL) 147 H 143 H (75-99) mg/dL 07/05/20 07/05/20 07/05/20 Range/Units 03:40 03:40 06:12 WBC 12.3 H (3.8-10.6) k/uL Hct 55.1 H (39.0-53.0) % MCV 102.4 H (80.0-100.0) fL Plt Count 127 L (150-450) k/uL Neutrophils # (Manual) 11.50 H (1.3-7.7) k/uL Lymphocytes # (Manual) 0.37 L (1.0-4.8) k/uL ABG pCO2 (35-45) mmHg ABG pO2 (83-108) mmHg ABG HCO3 (21-25) mmol/L ABG Total CO2 (19-24) mmol/L ABG O2 Saturation (94-97) % Sodium 136 L (137-145) mmol/L Chloride 84 L (98-107) mmol/L Carbon Dioxide 47 H* (22-30) mmol/L Creatinine 0.55 L (0.66-1.25) mg/dL Glucose 152 H (74-99) mg/dL POC Glucose (mg/dL) 148 H (75-99) mg/dL 07/05/20 Range/Units 11:53 WBC (3.8-10.6) k/uL Hct (39.0-53.0) % MCV (80.0-100.0) fL Plt Count (150-450) k/uL Neutrophils # (Manual) (1.3-7.7) k/uL Lymphocytes # (Manual) (1.0-4.8) k/uL ABG pCO2 (35-45) mmHg ABG pO2 (83-108) mmHg ABG HCO3 (21-25) mmol/L ABG Total CO2 (19-24) mmol/L ABG O2 Saturation (94-97) % Sodium (137-145) mmol/L Chloride (98-107) mmol/L Carbon Dioxide (22-30) mmol/L Creatinine (0.66-1.25) mg/dL Glucose (74-99) mg/dL POC Glucose (mg/dL) 180 H (75-99) mg/dL Microbiology - Last 24 Hours (Table) 07/03/20 19:24 Blood Culture - Preliminary Blood No Growth after 24 hours Assessment and Plan Plan: Assessment: #1. Acute on chronic hypoxic and hypercapnic respiratory failure secondary to COPD exacerbation secondary to obesity/hypoventilation syndrome and obstructive sleep apnea and significant right-sided pleural effusion the etiology of which is not clear at this point, however did respond nicely to IV diuretics in the chest x-ray today is improved in terms of right-sided pleural effusion size. Patient required BiPAP support, likely improved, and will be switched to nasal cannula #2. Acute exacerbation of COPD #3. Obstructive sleep apnea syndrome #4. Obesity hypoventilation syndrome #5. Recent pleural effusion, of unknown etiology, responding to IV diuretics #6. Acute CO2 narcosis and acute metabolic encephalopathy secondary to CO2 narcosis secondary to COPD likely exacerbated by administration of benzodiazepines for acute alcohol withdrawal, agitation and restlessness in the emergency department #7. History of tobacco dependence syndrome 8. Dyslipidemia #9. Chronic back pain #10. Alcoholism and history of alcohol abuse, patient consumes 10 beers on a daily basis #11. Chronic gout #12. Parkinson's disease Plan: We'll give the patient a trial off BiPAP, creatinine 6 L per high flow cannula, maintaining sats at around 95%, breathing has significantly improved mentation has improved, patient has intermittent episodes of confusion, but no significant agitation only required 1 dose of Ativan last night, we'll continue to monitor the patient for signs of acute alcohol withdrawal using the CIWA protocol, and try to administer Ativan in a judicious manner to avoid hypoventilation. Continue nebulized bronchodilators, continue diuretics, today's chest x-ray shows improvement in the appearance of right-sided pleural effusion. Weaning FiO2, continue bronchodilators, maintaining safety precautions, we will continue to follow and monitor the patient in intensive care unit I performed a history & physical examination of the patient and discussed their management with my nurse practitioner, Lizette Yarbrough. I reviewed the nurse practitioner's note and agree with the documented findings and plan of care. Lung sounds are positive for diminished breath sounds in right base. The findings and the impression was discussed with the patient. I attest to the documentation by the nurse practitioner. Time with Patient: Less than 30
--- NOTE | 2020-07-05 14:18 | P.PN ---
Subjective Progress Note Date: 07/05/20 HISTORY OF PRESENT ILLNESS This is a 59-year-old obese male patient of Dr. Mcgarry and Dr. ROSALBA Ott with past medical history of COPD, possible alpha-1 antitrypsin deficiency--will need to clarify, probable obstructive sleep apnea on oxygen at night, tobacco use and dependence, daily alcohol use, chronic back pain. Patient apparently developed increasing difficulty with breathing and EMS was called to his home phone pulse ox to be 60. Patient had some recent white or brown sputum production. Patient was afebrile, heart rate 110, blood pressure 151/78, pulse ox 93%, respiratory rate 29. EKG was a sinus tachycardia with no acute ST changes. WBC 9.2, hemoglobin 17.3, hematocrit 0.3, platelet count 135. Sodium 134, potassium 5.4, chloride 91, CO2 38, BUN 14 and creatinine 0.52. Blood sugar 114. Liver function tests normal. ProBNP 506. Chest x-ray reveals right pleural effusion. Patient was started on Solu-Medrol, DuoNeb treatments. Patient apparently was agitated in the emergency center and received 2 doses of Ativan IV 1 mg each 20 minutes apart. Patient was brought up to the cardiac stepdown unit and has been sleeping and unable to be awakened. He is currently on BiPAP. 07/05: Patient was transferred into the intensive care yesterday. Patient is on BiPAP with plan to transition to 2 L nasal cannula. Repeat chest x-ray shows significant improvement in the right-sided pleural effusion right basilar airspace opacities remain possibly in the base of atelectasis. Patient is awake and alert this morning. He is able to answer questions appropriately. Shortness of breath is improving from yesterday are prior to admission. Patient has been afebrile, heart rate 77, blood pressure 112/64, pulse ox 95% on 6 L nasal cannula. Repeat blood work reveals WBC 12.3, hemoglobin 17.3 and hematocrit 55.1. Platelet count 127. Sodium 136, potassium 4.3, chloride 84, CO2 47, creatinine 0.55. Blood sugars running between 143 and 180. Blood culture no growth after 24 hours. Patient is currently on IV Lasix 40 mg twice daily and prednisone 60 mg IV every 6 hours. Patient is on the [facility] protocol. REVIEW OF SYSTEMS Constitutional: No fever, no chills, no night sweats. No weight change. Reports fatigue. Reports daytime sleepiness. EENT: No headache. No dizziness. No nasal drainage or congestion. Lungs: Reports shortness of breath, cough, no sputum production. No wheezing. Cardiovascular: No chest pain, no lower extremity edema. No palpitations. No paroxysmal nocturnal dyspnea. No orthopnea. No lightheadedness or dizziness. No syncopal episodes. Abdominal: No abdominal pain. No nausea, vomiting. No diarrhea. No constipation. No bloody or tarry stools.. No loss of appetite. Genitourinary: No dysuria, increased frequency, urgency. No urinary retention. Musculoskeletal: No myalgias. No muscle weakness, no gait dysfunction, no frequent falls. No back pain. No neck pain. Integumentary: No wounds, no lesions. No rash or pruritus. No unusual bruising. No change in hair or nails. Neurologic: No aphasia. No facial droop. No change in mentation. No head injury. No headache. No paralysis. No paresthesia. Psychiatric: No depression. No anxiety. No mood swings. Endocrine: No abnormal blood sugars. PHYSICAL EXAMINATION Gen: This is a 59-year-old obese male patient. He is resting in ICU bed with BiPAP in place. HEENT: Head is atraumatic, normocephalic. Pupils equal, round. Sclerae is anicteric. NECK: Supple. No JVD. No lymphadenopathy. No thyromegaly. LUNGS: Diminished with inspiratory and expiratory wheezes, rhonchi. No intercostal retractions. HEART: Regular rate and rhythm. No murmur. ABDOMEN: Soft. Bowel sounds are present. No masses. No tenderness. EXTREMITIES: No pedal edema. No calf tenderness. NEUROLOGICAL: Patient is awake and alert and oriented 3. Able to move all 4 extremities, no focal neuro deficits. ASSESSMENT AND PLAN 1. Acute on chronic hypoxic and hypercapnic respiratory failure secondary to pleural effusion, COPD exacerbation, obstructive sleep apnea. Consult with pulmonary medicine. Continue DuoNeb treatments 4 times daily and every 4 hours as needed, Lasix 40 mg IV twice daily, Solu-Medrol 60 mg IV every 6 hours, Pulmicort twice daily. 2. Chronic hypoxic respiratory failure. Patient apparently is to wear oxygen around the clock but only uses at nighttime at 2 L. 3. Suspected obstructive sleep apnea. 4. Polycythemia. Repeat CBC tomorrow. 5. Thrombocytopenia of unclear etiology. 6. Somnolent secondary to 2 doses of IV Ativan. Monitor closely. 7. Tobacco use and dependence. Nicotine patch. 8. Hyperlipidemia. Continue Lipitor 40 mg at bedtime. 9. Chronic back pain. Continue baclofen at reduced dose of 10 mg at bedtime as needed. Hold Potter 10. 10. Chronic gout. Continue allopurinol. 11. Parkinson's disease. Continue Sinemet one at bedtime. 12. Alcohol abuse. CIWA protocol. 13. DVT prophylaxis. Heparin subcu. 14. GI prophylaxis. Protonix. Discharge plan: home, PT evaluation Impression and plan of care have been directed as dictated by the signing physician. Janette Jiménez nurse practitioner acting as scribe for signing physician. Objective - Vital Signs Vital signs: Vital Signs Temp 97.8 F 07/05/20 04:00 Pulse 74 07/05/20 07:56 Resp 23 07/05/20 07:00 BP 113/72 07/05/20 07:00 Pulse Ox 94 L 07/05/20 07:00 Intake & Output 07/04/20 07/05/20 07/05/20 18:59 06:59 18:59 Intake Total 0 355 60 Output Total 1520 905 30 Balance -1520 -550 30 Weight 112.491 kg 113.7 kg Intake: Oral 0 355 60 Tube Feeding 0 Output: Urine 1520 905 30 Other: Voiding Method Indwelling Catheter Indwelling Catheter - Labs CBC & Chem 7: 07/05/20 03:40 07/05/20 03:40 Labs: Abnormal Lab Results - Last 24 Hours (Table) 07/04/20 07/04/20 07/04/20 Range/Units 11:15 11:51 14:52 WBC (3.8-10.6) k/uL Hct (39.0-53.0) % MCV (80.0-100.0) fL Plt Count (150-450) k/uL Neutrophils # (Manual) (1.3-7.7) k/uL Lymphocytes # (Manual) (1.0-4.8) k/uL ABG pH 7.27 L (7.35-7.45) ABG pCO2 104 H* 83 H* (35-45) mmHg ABG pO2 61 L 61 L (83-108) mmHg ABG HCO3 48 H* 48 H* (21-25) mmol/L ABG Total CO2 51 H 50 H (19-24) mmol/L ABG O2 Saturation 89.8 L 91.9 L (94-97) % Sodium (137-145) mmol/L Chloride (98-107) mmol/L Carbon Dioxide (22-30) mmol/L Creatinine (0.66-1.25) mg/dL Glucose (74-99) mg/dL POC Glucose (mg/dL) 136 H (75-99) mg/dL 07/04/20 07/05/20 07/05/20 Range/Units 17:03 00:44 03:40 WBC 12.3 H (3.8-10.6) k/uL Hct 55.1 H (39.0-53.0) % MCV 102.4 H (80.0-100.0) fL Plt Count 127 L (150-450) k/uL Neutrophils # (Manual) 11.50 H (1.3-7.7) k/uL Lymphocytes # (Manual) 0.37 L (1.0-4.8) k/uL ABG pH (7.35-7.45) ABG pCO2 (35-45) mmHg ABG pO2 (83-108) mmHg ABG HCO3 (21-25) mmol/L ABG Total CO2 (19-24) mmol/L ABG O2 Saturation (94-97) % Sodium (137-145) mmol/L Chloride (98-107) mmol/L Carbon Dioxide (22-30) mmol/L Creatinine (0.66-1.25) mg/dL Glucose (74-99) mg/dL POC Glucose (mg/dL) 147 H 143 H (75-99) mg/dL 07/05/20 07/05/20 Range/Units 03:40 06:12 WBC (3.8-10.6) k/uL Hct (39.0-53.0) % MCV (80.0-100.0) fL Plt Count (150-450) k/uL Neutrophils # (Manual) (1.3-7.7) k/uL Lymphocytes # (Manual) (1.0-4.8) k/uL ABG pH (7.35-7.45) ABG pCO2 (35-45) mmHg ABG pO2 (83-108) mmHg ABG HCO3 (21-25) mmol/L ABG Total CO2 (19-24) mmol/L ABG O2 Saturation (94-97) % Sodium 136 L (137-145) mmol/L Chloride 84 L (98-107) mmol/L Carbon Dioxide 47 H* (22-30) mmol/L Creatinine 0.55 L (0.66-1.25) mg/dL Glucose 152 H (74-99) mg/dL POC Glucose (mg/dL) 148 H (75-99) mg/dL Microbiology - Last 24 Hours (Table) 07/03/20 19:24 Blood Culture - Preliminary Blood No Growth after 24 hours
[2020-07-05 16:38] LABS: Glucose,Whole Blood 137 mg/dL (75-99)
[2020-07-05] MEDS: CARBIDOPA-LEVODOPA 25-100 MG 1 EACH TAB PO SCH (22:00)
[2020-07-05] MEDS: ATORVASTATIN 40 MG TAB PO SCH (22:00)
[2020-07-05 22:25] LABS: Glucose,Whole Blood 148 mg/dL (75-99)
[2020-07-05] MEDS: BACLOFEN 10 MG TAB PO PRN (22:50)
[2020-07-06] MEDS: HYDROcodone/APAP 10-325MG 1 EACH TAB PO PRN ×4 (00:36→23:19)
[2020-07-06] MEDS: methylPREDNISolone SOD SUCCI 125 MG/2 ML VIAL IV SCH ×2 (02:13→08:17)
[2020-07-06 04:14] LABS: Basophils % (A) 0 %; Eosinophils % (A) 0 %; HCT 54.4 % (39.0-53.0); HGB 16.5 gm/dL (13.0-17.5); Hypochromasia Moderate; Lymphocytes # (A) 0.6 k/uL (1.0-4.8); Lymphocytes % (A) 6 %; MCH 30.4 pg (25.0-35.0); MCHC 30.4 g/dL (31.0-37.0); MCV 100.2 fL (80.0-100.0); Mean Platelet Volume 7.7; Monocytes # (A) 0.7 k/uL (0-1.0); Monocytes % (A) 7 %; Neutrophils # (A) 8.1 k/uL (1.3-7.7); Neutrophils % (A) 85 %; Platelet Count 148 k/uL (150-450); RBC 5.43 m/uL (4.30-5.90); RDW 13.7 % (11.5-15.5); WBC 9.6 k/uL (3.8-10.6)
[2020-07-06 04:26] LABS: African American GFR (CKD) >90 (>60 ml/min/1.73 sqM); Blood Urea Nitrogen 21 mg/dL (9-20); Calcium 8.2 mg/dL (8.4-10.2); Chloride 82 mmol/L (98-107); Glucose 143 mg/dL (74-99); Non-African American GFR(CKD) >90 (>60 ml/min/1.73 sqM); Potassium 3.7 mmol/L (3.5-5.1); Sodium 134 mmol/L (137-145)
[2020-07-06 04:32] LABS: Anion Gap 4 mmol/L
[2020-07-06 04:46] LABS: Carbon Dioxide 48 mmol/L (22-30)
[2020-07-06] MEDS ORDERED: Potassium Replacement Protocol 1 EACH MISC MISCELLANE PRN (05:28)
[2020-07-06] MEDS ORDERED: POTASSIUM CHLORIDE ER 20 MEQ TAB.ER PO SCH (06:00)
--- NOTE | 2020-07-06 06:37 | XR ---
EXAMINATION TYPE: XR chest 1V portable DATE OF EXAM: 07/06/2020 CLINICAL HISTORY: Difficulty breathing progress study. TECHNIQUE: Single AP portable semiupright view of the chest is obtained. COMPARISON: Chest x-ray from one day earlier and older studies. CT chest April 05, 2018. FINDINGS: Cardiac silhouette size stable and within normal limits. Multilevel spurring in the spine redemonstrated. Some chronic parenchymal changes with persistent small right pleural effusion and pat zaira right basilar opacity. Left lung remains clear. IMPRESSION: Chronic parenchymal changes with small right pleural effusion and right lower lung acute infiltrate and/or atelectasis. No significant change from one day earlier. Interval improvement since admission x-ray July 03 noted.
[2020-07-06] MEDS: IPRATROPIUM-ALBUTEROL 3 ML NEB INHALATION SCH ×4 (07:58→21:44)
[2020-07-06] MEDS: BUDESONIDE 0.5 MG/2 ML NEBU INHALATION SCH ×2 (07:58→21:44)
[2020-07-06] MEDS: FORMOTEROL FUMARATE 20 MCG/2 ML NEBU INHALATION SCH ×2 (07:58→21:44)
[2020-07-06 07:59] LABS: Glucose,Whole Blood 116 mg/dL (75-99)
[2020-07-06] MEDS: PANTOPRAZOLE 40 MG TABLET PO SCH (08:10)
[2020-07-06] MEDS: INSULIN ASPART (NovoLOG) 100 UNIT/ML VIAL SQ SCH ×4 (08:11→20:48)
[2020-07-06] MEDS: HEPARIN SODIUM,PORCINE 5,000 UNIT/ML 1 ML VIAL SQ SCH ×2 (09:38→23:21)
[2020-07-06] MEDS: FUROSEMIDE 10 MG/ML 4 ML VIAL IV SCH (09:38)
[2020-07-06] MEDS: NICOTINE 21MG/24HR PATCH TRANSDERM SCH (09:39)
[2020-07-06 11:49] LABS: Glucose,Whole Blood 155 mg/dL (75-99)
--- NOTE | 2020-07-06 12:36 | P.PN ---
Subjective Progress Note Date: 07/06/20 Principal diagnosis: Acute hypoxic and hypercapnic respiratory failure This is a 59-year-old white male with history of COPD, possible alpha-1 antitrypsin deficiency, history of obstructive sleep apnea syndrome, patient uses oxygen at night. History of alcohol abuse, alcoholism, chronic back pain, patient was brought in by EMS early this morning with complaints of increased s hortness of breath. Upon EMS arrival to his house his pulse ox was 60 and the patient was noted to be smoking cigarettes. Patient was evaluated in the ER, and he was noted to have abnormal chest x-ray with right-sided pleural effusion. The patient himself could not give any clear history. Patient was noted to have episodes of extreme agitation in the ER, he was given Ativan IV push 2 and he was admitted to the regular medical floor. I happened to be rounding on the floor at the time shortly after the patient arrived to the medical floor, and I noted the patient was on BiPAP, he was lethargic, intermittently waking up, confused, and his ABG which I ordered showed a pO2 of 61 pCO2 of 104 and pH of 7.27. Chest x-ray showed right-sided pleural effusion and I recommended ultrasound for possible thoracentesis. I have also made arrangements for the patient to be transferred immediately to the ICU. His BiPAP settings were adjusted placed on IPAP of 14 and EPAP of 5 and FiO2 was increased to 45%, and patient was transferred to the ICU minutes after I evaluated the patient. Previous echocardiogram from 2017 was noted to be normal. CT of the chest from 2018 was basically unremarkable. Chest x-ray on this admission showed a moderate sized right-sided pleural effusion which is relatively new. On 07/05/2020 patient seen in follow-up in the intensive care unit. He is awake and alert, he remains on BiPAP support, he's been diuresed, he is a -2 L over the last 24 hours, today's chest x-ray showed significant improvement in the appearance of right-sided pleural effusion right basilar airspace opacities remain possibly on the basis of atelectasis. No fever or chills, patient was given a trial on nasal cannula, on 6 L pulse ox is 95%, his mentation is appropriate, his current severe scale is 3, patient only required 1 mg of Ativan last night. He is fairly cooperative, no agitation, no diaphoresis, no complaints of headaches, no complaints of visual or auditory hallucinations. Vital signs have been stable overnight. Patient remains on IV steroids, nebulized bronchodilators in addition to IV Lasix. His labs have been reviewed, showing Levatol, 12.3, hemoglobin of 17.3, sodium is 136, potassium is 4.3, chloride is 84, CO2 is 47, BUN is 19 and creatinine 0.55. Reevaluated today on 07/06/20, patient remains in the intensive care unit, remains on BiPAP at night, and on nasal cannula during the day, patient is now sitting in bed eating, does not seem to be in any distress, he is hemodynamically stable, and I plan to intensive the patient out of the ICU to a monitor bed sometime later today. Chest x-ray continues to show improvement in his right-sided pleural effusion, but not completely resolved. CBC is relatively normal. Celexa lites are normal however his bicarb is 48 implies that the patient normally has a very elevated pCO2 secondary to his underlying COPD and obstructive sleep apnea syndrome as well as obesity/hypoventilation syndrome Objective - Vital Signs Vital signs: Vital Signs Temp 98.2 F 07/06/20 08:00 Pulse 76 07/06/20 11:37 Resp 29 H 07/06/20 10:00 BP 119/65 07/06/20 10:00 Pulse Ox 90 L 07/06/20 10:00 Intake & Output 07/05/20 07/06/20 07/06/20 18:59 06:59 18:59 Intake Total 60 Output Total 1330 2265 350 Balance -1270 -2265 -350 Weight 112 kg Intake: Oral 60 Output: Urine 1330 2265 350 Other: Voiding Method Indwelling Catheter Indwelling Catheter Indwelling Catheter - Exam GENERAL EXAM: Alert, very pleasant, 59-year-old white male, currently on nasal cannula, eating breakfast, in no distress. HEAD: Normocephalic/atraumatic. EENT: PERRLA, EOMI, no icterus, short obese neck noted. Moist mucous membranes. CHEST: No chest wall deformity. Symmetrical expansion. LUNGS: Equal air entry fine crackles at the bases especially at the right base noted. CVS: Regular rate and rhythm, normal S1 and S2, no gallops, no murmurs, no rubs ABDOMEN: Soft, nontender. No hepatosplenomegaly, normal bowel sounds, no guarding or rigidity. EXTREMITIES: No clubbing, no edema, no cyanosis, 2+ pulses and upper and lower extremities. MUSCULOSKELETAL: Muscle strength and tone normal. SPINE: No scoliosis or deformity SKIN: No rashes CENTRAL NERVOUS SYSTEM: Alert oriented 3 focal neurologic deficits. PSYCHIATRIC: Normal mood, affect and normal mental status examination. - Labs CBC & Chem 7: 07/06/20 03:22 07/06/20 03:22 Labs: Abnormal Lab Results - Last 24 Hours (Table) 07/05/20 07/05/20 07/06/20 Range/Units 16:36 22:23 03:22 Hct 54.4 H (39.0-53.0) % MCV 100.2 H (80.0-100.0) fL MCHC 30.4 L (31.0-37.0) g/dL Plt Count 148 L (150-450) k/uL Neutrophils # 8.1 H (1.3-7.7) k/uL Lymphocytes # 0.6 L (1.0-4.8) k/uL Sodium (137-145) mmol/L Chloride (98-107) mmol/L Carbon Dioxide (22-30) mmol/L BUN (9-20) mg/dL Creatinine (0.66-1.25) mg/dL Glucose (74-99) mg/dL POC Glucose (mg/dL) 137 H 148 H (75-99) mg/dL Calcium (8.4-10.2) mg/dL 07/06/20 07/06/20 07/06/20 Range/Units 03:22 07:57 11:47 Hct (39.0-53.0) % MCV (80.0-100.0) fL MCHC (31.0-37.0) g/dL Plt Count (150-450) k/uL Neutrophils # (1.3-7.7) k/uL Lymphocytes # (1.0-4.8) k/uL Sodium 134 L (137-145) mmol/L Chloride 82 L (98-107) mmol/L Carbon Dioxide 48 H* (22-30) mmol/L BUN 21 H (9-20) mg/dL Creatinine 0.58 L (0.66-1.25) mg/dL Glucose 143 H (74-99) mg/dL POC Glucose (mg/dL) 116 H 155 H (75-99) mg/dL Calcium 8.2 L (8.4-10.2) mg/dL Microbiology - Last 24 Hours (Table) 07/03/20 19:24 Blood Culture - Preliminary Blood No Growth after 48 hours Assessment and Plan Assessment: Impression: Acute on chronic hypoxic and hypercapnic respiratory failure secondary to COPD exacerbation, also secondary to obesity/hypoventilation syndrome and obstructive sleep apnea. Right pleural effusion, cardiogenic in nature unless told otherwise, responded t o diuretics. Acute diastolic congestive heart failure is strongly suspected. With right- sided pleural effusion, resolved with diuretics. Acute exacerbation of COPD. Obstructive sleep apnea syndrome. Obesity/hypoventilation syndrome. Acute CO2 narcosis and acute metabolic encephalopathy secondary to CO2 narcosis secondary to COPD. History of tobacco dependence syndrome. Dyslipidemia. Chronic back pain. Alcoholism and history of alcohol abuse. Chronic gout. Parkinson's disease. Recommendation: Transfer patient to a monitor bed on selective. Continue diuretics, added Diamox. Continue BiPAP as needed especially at night. No need for thoracentesis as the pleural effusion is improving with diuretics. Change Solu-Medrol to prednisone orally. Continue antibiotics. Continue GI and DVT prophylaxis. Continue CIWA protocol. We'll continue to follow. Time with Patient: Less than 30
[2020-07-06] MEDS: FUROSEMIDE 40 MG TAB PO SCH (12:56)
[2020-07-06] MEDS: predniSONE 20 MG TAB PO SCH (12:59)
[2020-07-06] MEDS: acetaZOLAMIDE 250 MG TAB PO SCH ×2 (13:00→23:21)
--- NOTE | 2020-07-06 14:49 | P.PN ---
Subjective Progress Note Date: 07/06/20 HISTORY OF PRESENT ILLNESS This is a 59-year-old obese male patient of Dr. Mcgarry and Dr. ROSALBA Ott with past medical history of COPD, possible alpha-1 antitrypsin deficiency--will need to clarify, probable obstructive sleep apnea on oxygen at night, tobacco use and dependence, daily alcohol use, chronic back pain. Patient apparently developed increasing difficulty with breathing and EMS was called to his home phone pulse ox to be 60. Patient had some recent white or brown sputum production. Patient was afebrile, heart rate 110, blood pressure 151/78, pulse ox 93%, respiratory rate 29. EKG was a sinus tachycardia with no acute ST changes. WBC 9.2, hemoglobin 17.3, hematocrit 0.3, platelet count 135. Sodium 134, potassium 5.4, chloride 91, CO2 38, BUN 14 and creatinine 0.52. Blood sugar 114. Liver function tests normal. ProBNP 506. Chest x-ray reveals right pleural effusion. Patient was started on Solu-Medrol, DuoNeb treatments. Patient apparently was agitated in the emergency center and received 2 doses of Ativan IV 1 mg each 20 minutes apart. Patient was brought up to the cardiac stepdown unit and has been sleeping and unable to be awakened. He is currently on BiPAP. 07/05: Patient was transferred into the intensive care yesterday. Patient is on BiPAP with plan to transition to 2 L nasal cannula. Repeat chest x-ray shows significant improvement in the right-sided pleural effusion right basilar airspace opacities remain possibly in the base of atelectasis. Patient is awake and alert this morning. He is able to answer questions appropriately. Shortness of breath is improving from yesterday are prior to admission. Patient has been afebrile, heart rate 77, blood pressure 112/64, pulse ox 95% on 6 L nasal cannula. Repeat blood work reveals WBC 12.3, hemoglobin 17.3 and hematocrit 55.1. Platelet count 127. Sodium 136, potassium 4.3, chloride 84, CO2 47, creatinine 0.55. Blood sugars running between 143 and 180. Blood culture no growth after 24 hours. Patient is currently on IV Lasix 40 mg twice daily and prednisone 60 mg IV every 6 hours. Patient is on the CIWA protocol. 07/06 patient examined in the ICU. Patient tenderness or shortness of breath. Is requiring 5 L of oxygen and saturating at 90-92% pulse of 89 respiratory rate 29 blood pressure 119/65 hemoglobin 16.5 hematocrit 54.4 MCV of 100.2 sodium 134 bicarb of 48 creatinine 0.5 chloride 82. Chest x-rays suggest improvement in the right-sided pleural effusion likely atelectasis. Lasix reduced to 40 mg oral daily from IV twice a day. Solu-Medrol switched to prednisone 40 mg by mouth daily. Diamox added it to 50 mg twice daily due to high bicarbonate Patient examined is feeling better. Patient denies any shortness of breath or chest pain. He is alert and answering questions he does wear 2 L of oxygen at bedtime at home and wears oxygen on traveling long distance during the day. Patient can be transferred out of the ICU today. Whitfield catheter to be removed today REVIEW OF SYSTEMS Constitutional: No fever, no chills, no night sweats. No weight change. Reports fatigue. Reports daytime sleepiness. EENT: No headache. No dizziness. No nasal drainage or congestion. Lungs: Reports shortness of breath, cough, no sputum production. No wheezing. Cardiovascular: No chest pain, no lower extremity edema. No palpitations. No paroxysmal nocturnal dyspnea. No orthopnea. No lightheadedness or dizziness. No syncopal episodes. Abdominal: No abdominal pain. No nausea, vomiting. No diarrhea. No constipation. No bloody or tarry stools.. No loss of appetite. Genitourinary: No dysuria, increased frequency, urgency. No urinary retention. Musculoskeletal: No myalgias. No muscle weakness, no gait dysfunction, no frequent falls. No back pain. No neck pain. Integumentary: No wounds, no lesions. No rash or pruritus. No unusual bruising. No change in hair or nails. Neurologic: No aphasia. No facial droop. No change in mentation. No head injury. No headache. No paralysis. No paresthesia. Psychiatric: No depression. No anxiety. No mood swings. Endocrine: No abnormal blood sugars. PHYSICAL EXAMINATION Gen: This is a 59-year-old obese male patient. He is resting in ICU bed with BiPAP in place. HEENT: Head is atraumatic, normocephalic. Pupils equal, round. Sclerae is anicteric. NECK: Supple. No JVD. No lymphadenopathy. No thyromegaly. LUNGS: Diminished with inspiratory and expiratory wheezes, rhonchi. No intercostal retractions. HEART: Regular rate and rhythm. No murmur. ABDOMEN: Soft. Bowel sounds are present. No masses. No tenderness. EXTREMITIES: No pedal edema. No calf tenderness. NEUROLOGICAL: Patient is awake and alert and oriented 3. Able to move all 4 extremities, no focal neuro deficits. ASSESSMENT AND PLAN 1. Acute on chronic hypoxic and hypercapnic respiratory failure secondary to pleural effusion, COPD exacerbation, obstructive sleep apnea. Consult with pulmonary medicine. Continue DuoNeb treatments 4 times daily and every 4 hours as needed, Lasix 40 mg by mouth daily Solu-Medrol switched to prednisone 40 mg by mouth daily . Pulmicort twice daily. 2. Chronic hypoxic respiratory failure. Patient apparently is to wear oxygen around the clock but only uses at nighttime at 2 L. 3. Suspected obstructive sleep apnea. 4. Polycythemia. Repeat CBC tomorrow. Likely secondary to hypoxia. Peripheral smear ordered folic acid and B12 levels ordered EPO levels ordered 5. Thrombocytopenia of unclear etiology. 6. Somnolent secondary to 2 doses of IV Ativan. Monitor closely. 7. Tobacco use and dependence. Nicotine patch. 8. Hyperlipidemia. Continue Lipitor 40 mg at bedtime. 9. Chronic back pain. Continue baclofen at reduced dose of 10 mg at bedtime as needed. Hold Jackson 10. 10. Chronic gout. Continue allopurinol. 11. Parkinson's disease. Continue Sinemet one at bedtime. 12. Alcohol abuse. [facility] protocol. 13. DVT prophylaxis. Heparin subcu. 14. GI prophylaxis. Protonix. Discharge plan: home, PT evaluation Objective - Vital Signs Vital signs: Vital Signs Temp 98.5 F 07/06/20 12:00 Pulse 75 07/06/20 13:00 Resp 20 07/06/20 13:00 BP 106/67 07/06/20 13:00 Pulse Ox 92 L 07/06/20 13:00 Intake & Output 07/05/20 07/06/20 07/06/20 18:59 06:59 18:59 Intake Total 60 Output Total 1330 2265 700 Balance -4180 -2283 -700 Weight 112 kg Intake: Oral 60 Output: Urine 1330 2265 700 Other: Voiding Method Indwelling Catheter Indwelling Catheter Indwelling Catheter - Labs CBC & Chem 7: 07/06/20 03:22 07/06/20 03:22 Labs: Abnormal Lab Results - Last 24 Hours (Table) 07/05/20 07/05/20 07/06/20 Range/Units 16:36 22:23 03:22 Hct 54.4 H (39.0-53.0) % MCV 100.2 H (80.0-100.0) fL MCHC 30.4 L (31.0-37.0) g/dL Plt Count 148 L (150-450) k/uL Neutrophils # 8.1 H (1.3-7.7) k/uL Lymphocytes # 0.6 L (1.0-4.8) k/uL Sodium (137-145) mmol/L Chloride (98-107) mmol/L Carbon Dioxide (22-30) mmol/L BUN (9-20) mg/dL Creatinine (0.66-1.25) mg/dL Glucose (74-99) mg/dL POC Glucose (mg/dL) 137 H 148 H (75-99) mg/dL Calcium (8.4-10.2) mg/dL 07/06/20 07/06/20 07/06/20 Range/Units 03:22 07:57 11:47 Hct (39.0-53.0) % MCV (80.0-100.0) fL MCHC (31.0-37.0) g/dL Plt Count (150-450) k/uL Neutrophils # (1.3-7.7) k/uL Lymphocytes # (1.0-4.8) k/uL Sodium 134 L (137-145) mmol/L Chloride 82 L (98-107) mmol/L Carbon Dioxide 48 H* (22-30) mmol/L BUN 21 H (9-20) mg/dL Creatinine 0.58 L (0.66-1.25) mg/dL Glucose 143 H (74-99) mg/dL POC Glucose (mg/dL) 116 H 155 H (75-99) mg/dL Calcium 8.2 L (8.4-10.2) mg/dL Microbiology - Last 24 Hours (Table) 07/03/20 19:24 Blood Culture - Preliminary Blood No Growth after 48 hours
[2020-07-06 17:22] LABS: Glucose,Whole Blood 149 mg/dL (75-99)
[2020-07-06 20:35] LABS: Glucose,Whole Blood 143 mg/dL (75-99)
[2020-07-06 22:57] LABS: Folate, Serum 18.7 ng/mL
[2020-07-06 23:17] LABS: Glucose,Whole Blood 108 mg/dL (75-99)
[2020-07-06] MEDS: CARBIDOPA-LEVODOPA 25-100 MG 1 EACH TAB PO SCH (23:21)
[2020-07-06] MEDS: ATORVASTATIN 40 MG TAB PO SCH (23:21)
[2020-07-07 05:47] LABS: African American GFR (CKD) >90 (>60 ml/min/1.73 sqM); Blood Urea Nitrogen 16 mg/dL (9-20); Calcium 8.9 mg/dL (8.4-10.2); Chloride 92 mmol/L (98-107); Glucose 106 mg/dL (74-99); Non-African American GFR(CKD) >90 (>60 ml/min/1.73 sqM); Potassium 3.4 mmol/L (3.5-5.1); Sodium 135 mmol/L (137-145)
[2020-07-07 05:53] LABS: Anion Gap 4 mmol/L
[2020-07-07 05:54] LABS: Basophils # (A) 0.1 k/uL (0-0.2); Basophils % (A) 1 %; Eosinophils % (A) 1 %; Hypochromasia Marked; Lymphocytes # (A) 0.9 k/uL (1.0-4.8); Lymphocytes % (A) 11 %; MCH 30.9 pg (25.0-35.0); MCHC 30.8 g/dL (31.0-37.0); MCV 100.5 fL (80.0-100.0); Macrocytosis Slight; Mean Platelet Volume 7.9; Monocytes # (A) 0.6 k/uL (0-1.0); Monocytes % (A) 8 %; Neutrophils # (A) 6.1 k/uL (1.3-7.7); Neutrophils % (A) 79 %; Platelet Count 125 k/uL (150-450); RBC 6.26 m/uL (4.30-5.90); RDW 13.8 % (11.5-15.5); WBC 7.8 k/uL (3.8-10.6)
[2020-07-07 05:56] LABS: Carbon Dioxide 39 mmol/L (22-30)
[2020-07-07 06:06] LABS: HGB 19.3 gm/dL (13.0-17.5)
[2020-07-07 06:07] LABS: HCT 62.9 % (39.0-53.0)
[2020-07-07] MEDS ORDERED: Potassium Replacement Protocol 1 EACH MISC MISCELLANE PRN (06:11)
[2020-07-07 06:49] LABS: Glucose,Whole Blood 111 mg/dL (75-99)
[2020-07-07] MEDS: INSULIN ASPART (NovoLOG) 100 UNIT/ML VIAL SQ SCH ×4 (06:54→20:50)
[2020-07-07] MEDS: PANTOPRAZOLE 40 MG TABLET PO SCH (07:19)
[2020-07-07] MEDS: POTASSIUM CHLORIDE ER 20 MEQ TAB.ER PO SCH ×2 (07:19→08:26)
[2020-07-07] MEDS: BUDESONIDE 0.5 MG/2 ML NEBU INHALATION SCH ×2 (08:03→19:35)
[2020-07-07] MEDS: IPRATROPIUM-ALBUTEROL 3 ML NEB INHALATION SCH ×4 (08:03→19:35)
[2020-07-07] MEDS: FORMOTEROL FUMARATE 20 MCG/2 ML NEBU INHALATION SCH ×2 (08:03→19:35)
[2020-07-07] MEDS: predniSONE 20 MG TAB PO SCH (08:23)
[2020-07-07] MEDS: acetaZOLAMIDE 250 MG TAB PO SCH ×2 (08:23→21:10)
[2020-07-07] MEDS: FUROSEMIDE 40 MG TAB PO SCH (08:24)
[2020-07-07] MEDS: HEPARIN SODIUM,PORCINE 5,000 UNIT/ML 1 ML VIAL SQ SCH ×2 (08:24→21:10)
[2020-07-07] MEDS: NICOTINE 21MG/24HR PATCH TRANSDERM SCH (08:25)
[2020-07-07] MEDS: HYDROcodone/APAP 10-325MG 1 EACH TAB PO PRN ×3 (08:41→23:06)
--- NOTE | 2020-07-07 08:56 | XR ---
EXAMINATION TYPE: XR chest 1V portable DATE OF EXAM: 07/07/2020 COMPARISON: 07/06/2020 INDICATION: Pleural effusion TECHNIQUE: Single frontal view of the chest is obtained. FINDINGS: The heart size is normal. The pulmonary vasculature is normal. Mild infiltrate is in the right costophrenic angle. A minimal pleural effusion is present. Findings a re stable. IMPRESSION: 1. Stable right lower lobe infiltrate with small right pleural effusion
[2020-07-07 12:00] LABS: Glucose,Whole Blood 194 mg/dL (75-99)
--- NOTE | 2020-07-07 14:12 | P.PN ---
Subjective Progress Note Date: 07/07/20 HISTORY OF PRESENT ILLNESS This is a 59-year-old obese male patient of Dr. Mcgarry and Dr. ROSALBA Ott with past medical history of COPD, possible alpha-1 antitrypsin deficiency--will need to clarify, probable obstructive sleep apnea on oxygen at night, tobacco use and dependence, daily alcohol use, chronic back pain. Patient apparently developed increasing difficulty with breathing and EMS was called to his home phone pulse ox to be 60. Patient had some recent white or brown sputum production. Patient was afebrile, heart rate 110, blood pressure 151/78, pulse ox 93%, respiratory rate 29. EKG was a sinus tachycardia with no acute ST changes. WBC 9.2, hemoglobin 17.3, hematocrit 0.3, platelet count 135. Sodium 134, potassium 5.4, chloride 91, CO2 38, BUN 14 and creatinine 0.52. Blood sugar 114. Liver function tests normal. ProBNP 506. Chest x-ray reveals right pleural effusion. Patient was started on Solu-Medrol, DuoNeb treatments. Patient apparently was agitated in the emergency center and received 2 doses of Ativan IV 1 mg each 20 minutes apart. Patient was brought up to the cardiac stepdown unit and has been sleeping and unable to be awakened. He is currently on BiPAP. 07/05: Patient was transferred into the intensive care yesterday. Patient is on BiPAP with plan to transition to 2 L nasal cannula. Repeat chest x-ray shows significant improvement in the right-sided pleural effusion right basilar airspace opacities remain possibly in the base of atelectasis. Patient is awake and alert this morning. He is able to answer questions appropriately. Shortness of breath is improving from yesterday are prior to admission. Patient has been afebrile, heart rate 77, blood pressure 112/64, pulse ox 95% on 6 L nasal cannula. Repeat blood work reveals WBC 12.3, hemoglobin 17.3 and hematocrit 55.1. Platelet count 127. Sodium 136, potassium 4.3, chloride 84, CO2 47, creatinine 0.55. Blood sugars running between 143 and 180. Blood culture no growth after 24 hours. Patient is currently on IV Lasix 40 mg twice daily and prednisone 60 mg IV every 6 hours. Patient is on the CIWA protocol. 07/06 patient examined in the ICU. Patient tenderness or shortness of breath. Is requiring 5 L of oxygen and saturating at 90-92% pulse of 89 respiratory rate 29 blood pressure 119/65 hemoglobin 16.5 hematocrit 54.4 MCV of 100.2 sodium 134 bicarb of 48 creatinine 0.5 chloride 82. Chest x-rays suggest improvement in the right-sided pleural effusion likely atelectasis. Lasix reduced to 40 mg oral daily from IV twice a day. Solu-Medrol switched to prednisone 40 mg by mouth daily. Diamox added it to 50 mg twice daily due to high bicarbonate Patient examined is feeling better. Patient denies any shortness of breath or chest pain. He is alert and answering questions he does wear 2 L of oxygen at bedtime at home and wears oxygen on traveling long distance during the day. Patient can be transferred out of the ICU today. Whitfield catheter to be removed today 07/07 patient examined bedside continues to have shortness of breath. Vitals are stable continues to be hypoxic with the saturation 90% on 5 L. 16 creatinine 0.83 bicarb 39. Patient continues to get diuresis per pulmonary. Patient is a heavy smoker smokes around 1-1/2 packs per day or every day. Chest x-ray suggestive of right lower lobe infiltrate with small right pleural effusion. Does appear comfortable continue current regimen. Is discussed with pulmonary who would like to hold on the CAT scan. REVIEW OF SYSTEMS Constitutional: No fever, no chills, no night sweats. No weight change. Reports fatigue. Reports daytime sleepiness. EENT: No headache. No dizziness. No nasal drainage or congestion. Lungs: Reports shortness of breath, cough, no sputum production. wheezing. Cardiovascular: No chest pain, no lower extremity edema. No palpitations. No paroxysmal nocturnal dyspnea. No orthopnea. No lightheadedness or dizziness. No syncopal episodes. Abdominal: No abdominal pain. No nausea, vomiting. No diarrhea. No constipation. No bloody or tarry stools.. No loss of appetite. Genitourinary: No dysuria, increased frequency, urgency. No urinary retention. Musculoskeletal: No myalgias. No muscle weakness, no gait dysfunction, no frequent falls. No back pain. No neck pain. Integumentary: No wounds, no lesions. No rash or pruritus. No unusual bruising. No change in hair or nails. Neurologic: No aphasia. No facial droop. No change in mentation. No head injury. No headache. No paralysis. No paresthesia. Psychiatric: No depression. No anxiety. No mood swings. Endocrine: No abnormal blood sugars. PHYSICAL EXAMINATION Gen: This is a 59-year-old obese male patient. He is resting in ICU bed with BiPAP in place. HEENT: Head is atraumatic, normocephalic. Pupils equal, round. Sclerae is anicteric. NECK: Supple. No JVD. No lymphadenopathy. No thyromegaly. LUNGS: Diminished with inspiratory and expiratory wheezes, rhonchi. No intercostal retractions. HEART: Regular rate and rhythm. No murmur. ABDOMEN: Soft. Bowel sounds are present. No masses. No tenderness. EXTREMITIES: No pedal edema. No calf tenderness. NEUROLOGICAL: Patient is awake and alert and oriented 3. Able to move all 4 extremities, no focal neuro deficits. ASSESSMENT AND PLAN 1. Acute on chronic hypoxic and hypercapnic respiratory failure secondary to pleural effusion, COPD exacerbation, obstructive sleep apnea. Consult with pulmonary medicine. Continue DuoNeb treatments 4 times daily and every 4 hours as needed, Lasix 40 mg by mouth daily Solu-Medrol switched to prednisone 40 mg by mouth daily . Pulmicort twice daily. Perforomist twice a day Pulmonary would like to hold on CAT scan. Incentive spirometer added today 2. Chronic hypoxic respiratory failure. Patient apparently is to wear oxygen around the clock but only uses at nighttime at 2 L. 3. Suspected obstructive sleep apnea. 4. Polycythemia. Likely secondary to hypoxia. With hemoconcentration from diuresis Peripheral smear ordered folic acid and B12 levels ordered EPO levels ordered 5. Thrombocytopenia of unclear etiology. 6. Somnolent secondary to 2 doses of IV Ativan. Monitor closely. 7. Tobacco use and dependence. Nicotine patch. 8. Hyperlipidemia. Continue Lipitor 40 mg at bedtime. 9. Chronic back pain. Continue baclofen at reduced dose of 10 mg at bedtime as needed. Hold [place] 10. 10. Chronic gout. Continue allopurinol. 11. Parkinson's disease. Continue Sinemet one at bedtime. 12. Alcohol abuse. [facility] protocol. 13. DVT prophylaxis. Heparin subcu. 14. GI prophylaxis. Protonix. Discharge plan: home, PT evaluation Objective - Vital Signs Vital signs: Vital Signs Temp 98.1 F 07/07/20 08:00 Pulse 84 09/27/20 12:20 Resp 16 07/07/20 08:00 BP 125/74 07/07/20 08:00 Pulse Ox 90 L 07/07/20 08:00 Intake & Output 07/06/20 07/07/20 07/07/20 18:59 06:59 18:59 Intake Total 1000 Output Total 6487 1750 Balance -1725 -1750 Weight 111.4 kg Intake: Oral 1000 Output: Urine 2725 1750 Other: Voiding Method Indwelling Catheter Indwelling Catheter Indwelling Catheter # Voids 1 - Labs CBC & Chem 7: 07/07/20 05:18 07/07/20 05:18 Labs: Abnormal Lab Results - Last 24 Hours (Table) 07/06/20 07/06/20 07/06/20 Range/Units 17:20 20:33 23:15 RBC (4.30-5.90) m/uL Hgb (13.0-17.5) gm/dL Hct (39.0-53.0) % MCV (80.0-100.0) fL MCHC (31.0-37.0) g/dL Plt Count (150-450) k/uL Lymphocytes # (1.0-4.8) k/uL Sodium (137-145) mmol/L Potassium (3.5-5.1) mmol/L Chloride (98-107) mmol/L Carbon Dioxide (22-30) mmol/L Glucose (74-99) mg/dL POC Glucose (mg/dL) 149 H 143 H 108 H (75-99) mg/dL 07/07/20 07/07/20 07/07/20 Range/Units 05:18 05:18 06:48 RBC 6.26 H (4.30-5.90) m/uL Hgb 19.3 H* (13.0-17.5) gm/dL Hct 62.9 H* (39.0-53.0) % MCV 100.5 H (80.0-100.0) fL MCHC 30.8 L (31.0-37.0) g/dL Plt Count 125 L (150-450) k/uL Lymphocytes # 0.9 L (1.0-4.8) k/uL Sodium 135 L (137-145) mmol/L Potassium 3.4 L (3.5-5.1) mmol/L Chloride 92 L (98-107) mmol/L Carbon Dioxide 39 H (22-30) mmol/L Glucose 106 H (74-99) mg/dL POC Glucose (mg/dL) 111 H (75-99) mg/dL 07/07/20 Range/Units 11:58 RBC (4.30-5.90) m/uL Hgb (13.0-17.5) gm/dL Hct (39.0-53.0) % MCV (80.0-100.0) fL MCHC (31.0-37.0) g/dL Plt Count (150-450) k/uL Lymphocytes # (1.0-4.8) k/uL Sodium (137-145) mmol/L Potassium (3.5-5.1) mmol/L Chloride (98-107) mmol/L Carbon Dioxide (22-30) mmol/L Glucose (74-99) mg/dL POC Glucose (mg/dL) 194 H (75-99) mg/dL Microbiology - Last 24 Hours (Table) 07/03/20 19:24 Blood Culture - Preliminary Blood No Growth after 72 hours
--- NOTE | 2020-07-07 14:29 | P.PN ---
Subjective Progress Note Date: 07/07/20 Principal diagnosis: Acute hypoxic and hypercapnic respiratory failure This is a 59-year-old white male with history of COPD, possible alpha-1 antitrypsin deficiency, history of obstructive sleep apnea syndrome, patient uses oxygen at night. History of alcohol abuse, alcoholism, chronic back pain, patient was brought in by EMS early this morning with complaints of increased s hortness of breath. Upon EMS arrival to his house his pulse ox was 60 and the patient was noted to be smoking cigarettes. Patient was evaluated in the ER, and he was noted to have abnormal chest x-ray with right-sided pleural effusion. The patient himself could not give any clear history. Patient was noted to have episodes of extreme agitation in the ER, he was given Ativan IV push 2 and he was admitted to the regular medical floor. I happened to be rounding on the floor at the time shortly after the patient arrived to the medical floor, and I noted the patient was on BiPAP, he was lethargic, intermittently waking up, confused, and his ABG which I ordered showed a pO2 of 61 pCO2 of 104 and pH of 7.27. Chest x-ray showed right-sided pleural effusion and I recommended ultrasound for possible thoracentesis. I have also made arrangements for the patient to be transferred immediately to the ICU. His BiPAP settings were adjusted placed on IPAP of 14 and EPAP of 5 and FiO2 was increased to 45%, and patient was transferred to the ICU minutes after I evaluated the patient. Previous echocardiogram from 2017 was noted to be normal. CT of the chest from 2018 was basically unremarkable. Chest x-ray on this admission showed a moderate sized right-sided pleural effusion which is relatively new. On 07/05/2020 patient seen in follow-up in the intensive care unit. He is awake and alert, he remains on BiPAP support, he's been diuresed, he is a -2 L over the last 24 hours, today's chest x-ray showed significant improvement in the appearance of right-sided pleural effusion right basilar airspace opacities remain possibly on the basis of atelectasis. No fever or chills, patient was given a trial on nasal cannula, on 6 L pulse ox is 95%, his mentation is appropriate, his current severe scale is 3, patient only required 1 mg of Ativan last night. He is fairly cooperative, no agitation, no diaphoresis, no complaints of headaches, no complaints of visual or auditory hallucinations. Vital signs have been stable overnight. Patient remains on IV steroids, nebulized bronchodilators in addition to IV Lasix. His labs have been reviewed, showing Levatol, 12.3, hemoglobin of 17.3, sodium is 136, potassium is 4.3, chloride is 84, CO2 is 47, BUN is 19 and creatinine 0.55. Reevaluated today on 07/06/20, patient remains in the intensive care unit, remains on BiPAP at night, and on nasal cannula during the day, patient is now sitting in bed eating, does not seem to be in any distress, he is hemodynamically stable, and I plan to intensive the patient out of the ICU to a monitor bed sometime later today. Chest x-ray continues to show improvement in his right-sided pleural effusion, but not completely resolved. CBC is relatively normal. Celexa lites are normal however his bicarb is 48 implies that the patient normally has a very elevated pCO2 secondary to his underlying COPD and obstructive sleep apnea syndrome as well as obesity/hypoventilation syndrome Reevaluated today on 07/07/20, patient remains in the intensive care unit, however he is now on overflow. Patient continues to have intermittent episodes of cough and wheezing, still requiring 5 L nasal cannula, and patient supposedly smokes about 3 packs of cigarettes per day. On physical examination continues to wheeze, his chest x-ray is improved. Patient remains on bronchodilators and steroids. And I plan to transfer the patient out of the ICU to a regular medical floor today. Objective - Vital Signs Vital signs: Vital Signs Temp 98.1 F 07/07/20 08:00 Pulse 84 07/07/20 12:20 Resp 16 07/07/20 08:00 BP 125/74 07/07/20 08:00 Pulse Ox 90 L 07/07/20 08:00 Intake & Output 07/06/20 07/07/20 07/07/20 18:59 06:59 18:59 Intake Total 1000 Output Total 6235 1750 Balance -1725 -175 Weight 111.4 kg Intake: Oral 1000 Output: Urine 2725 1750 Other: Voiding Method Indwelling Catheter Indwelling Catheter Indwelling Catheter # Voids 1 - Exam GENERAL EXAM: Alert, very pleasant, 59-year-old white male, on 5 L nasal cannula, asymptomatic. HEAD: Normocephalic/atraumatic. EENT: PERRLA, EOMI, no icterus, short obese neck noted. Moist mucous membranes. CHEST: No chest wall deformity. Symmetrical expansion. LUNGS: Equal air entry fine crackles at the bases especially at the right base noted. CVS: Regular rate and rhythm, normal S1 and S2, no gallops, no murmurs, no rubs ABDOMEN: Soft, nontender. No hepatosplenomegaly, normal bowel sounds, no guarding or rigidity. EXTREMITIES: No clubbing, no edema, no cyanosis, 2+ pulses and upper and lower extremities. MUSCULOSKELETAL: Muscle strength and tone normal. SPINE: No scoliosis or deformity SKIN: No rashes CENTRAL NERVOUS SYSTEM: Alert oriented 3 focal neurologic deficits. PSYCHIATRIC: Normal mood, affect and normal mental status examination. - Labs CBC & Chem 7: 07/07/20 05:18 07/07/20 05:18 Labs: Abnormal Lab Results - Last 24 Hours (Table) 07/06/20 07/06/20 07/06/20 Range/Units 17:20 20:33 23:15 RBC (4.30-5.90) m/uL Hgb (13.0-17.5) gm/dL Hct (39.0-53.0) % MCV (80.0-100.0) fL MCHC (31.0-37.0) g/dL Plt Count (150-450) k/uL Lymphocytes # (1.0-4.8) k/uL Sodium (137-145) mmol/L Potassium (3.5-5.1) mmol/L Chloride (98-107) mmol/L Carbon Dioxide (22-30) mmol/L Glucose (74-99) mg/dL POC Glucose (mg/dL) 149 H 143 H 108 H (75-99) mg/dL 07/07/20 07/07/20 07/07/20 Range/Units 05:18 05:18 06:48 RBC 6.26 H (4.30-5.90) m/uL Hgb 19.3 H* (13.0-17.5) gm/dL Hct 62.9 H* (39.0-53.0) % MCV 100.5 H (80.0-100.0) fL MCHC 30.8 L (31.0-37.0) g/dL Plt Count 125 L (150-450) k/uL Lymphocytes # 0.9 L (1.0-4.8) k/uL Sodium 135 L (137-145) mmol/L Potassium 3.4 L (3.5-5.1) mmol/L Chloride 92 L (98-107) mmol/L Carbon Dioxide 39 H (22-30) mmol/L Glucose 106 H (74-99) mg/dL POC Glucose (mg/dL) 111 H (75-99) mg/dL 07/07/20 Range/Units 11:58 RBC (4.30-5.90) m/uL Hgb (13.0-17.5) gm/dL Hct (39.0-53.0) % MCV (80.0-100.0) fL MCHC (31.0-37.0) g/dL Plt Count (150-450) k/uL Lymphocytes # (1.0-4.8) k/uL Sodium (137-145) mmol/L Potassium (3.5-5.1) mmol/L Chloride (98-107) mmol/L Carbon Dioxide (22-30) mmol/L Glucose (74-99) mg/dL POC Glucose (mg/dL) 194 H (75-99) mg/dL Microbiology - Last 24 Hours (Table) 07/03/20 19:24 Blood Culture - Preliminary Blood No Growth after 72 hours Assessment and Plan Assessment: Impression: Acute on chronic hypoxic and hypercapnic respiratory failure secondary to COPD exacerbation, also secondary to obesity/hypoventilation syndrome and obstructive sleep apnea. Right pleural effusion, cardiogenic in nature unless told otherwise, responded to diuretics. Acute diastolic congestive heart failure is strongly suspected. With right- sided pleural effusion, resolved with diuretics. Acute exacerbation of COPD. Obstructive sleep apnea syndrome. Obesity/hypoventilation syndrome. Acute CO2 narcosis and acute metabolic encephalopathy secondary to CO2 narcosis secondary to COPD. History of tobacco dependence syndrome. Dyslipidemia. Chronic back pain. Alcoholism and history of alcohol abuse. Chronic gout. Parkinson's disease. Recommendation: Transfer patient to a regular medical floor Continue diuretics, Lasix and Diamox Continue BiPAP as needed especially at night. No need for thoracentesis as the pleural effusion is improving with diuretics. The pleural effusion is almost resolved based on the chest x-ray today. Continue prednisone. Continue antibiotics. Continue GI and DVT prophylaxis. Continue CIWA protocol. We'll continue to follow. Time with Patient: Less than 30
[2020-07-07 16:28] LABS: Glucose,Whole Blood 152 mg/dL (75-99)
[2020-07-07 20:50] LABS: Glucose,Whole Blood 125 mg/dL (75-99)
[2020-07-07] MEDS: CARBIDOPA-LEVODOPA 25-100 MG 1 EACH TAB PO SCH (21:10)
[2020-07-07] MEDS: ATORVASTATIN 40 MG TAB PO SCH (21:10)
[2020-07-07] MEDS: BACLOFEN 10 MG TAB PO PRN (23:06)
[2020-07-08 04:32] LABS: African American GFR (CKD) >90 (>60 ml/min/1.73 sqM); Anion Gap 1 mmol/L; Blood Urea Nitrogen 17 mg/dL (9-20); Calcium 8.9 mg/dL (8.4-10.2); Carbon Dioxide 38 mmol/L (22-30); Chloride 96 mmol/L (98-107); Glucose 115 mg/dL (74-99); Non-African American GFR(CKD) >90 (>60 ml/min/1.73 sqM); Potassium 3.6 mmol/L (3.5-5.1); Sodium 135 mmol/L (137-145)
[2020-07-08 04:39] LABS: Basophils % (A) 0 %; Eosinophils # (A) 0.1 k/uL (0-0.7); Eosinophils % (A) 1 %; Hypochromasia Marked; Lymphocytes # (A) 0.9 k/uL (1.0-4.8); Lymphocytes % (A) 8 %; MCH 30.6 pg (25.0-35.0); MCHC 30.4 g/dL (31.0-37.0); MCV 100.7 fL (80.0-100.0); Macrocytosis Slight; Mean Platelet Volume 8.2; Monocytes # (A) 0.8 k/uL (0-1.0); Monocytes % (A) 6 %; Neutrophils # (A) 10.1 k/uL (1.3-7.7); Neutrophils % (A) 84 %; Platelet Count 131 k/uL (150-450); RBC 6.19 m/uL (4.30-5.90); RDW 13.9 % (11.5-15.5)
[2020-07-08 04:40] LABS: HCT 62.4 % (39.0-53.0)
[2020-07-08] MEDS: PANTOPRAZOLE 40 MG TABLET PO SCH (06:36)
[2020-07-08 06:48] LABS: Glucose,Whole Blood 128 mg/dL (75-99)
[2020-07-08] MEDS: INSULIN ASPART (NovoLOG) 100 UNIT/ML VIAL SQ SCH ×4 (06:48→21:29)
--- NOTE | 2020-07-08 07:40 | P.PN ---
Subjective This is a 59-year-old obese male patient of Dr. Mcgarry and Dr. ROSALBA Ott with past medical history of COPD, possible alpha-1 antitrypsin deficiency--will need to clarify, probable obstructive sleep apnea on oxygen at night, tobacco use and dependence, daily alcohol use, chronic back pain. Patient apparently developed increasing difficulty with breathing and EMS was called to his home phone pulse ox to be 60. Patient had some recent white or brown sputum production. Patient was afebrile, heart rate 110, blood pressure 151/78, pulse ox 93%, respiratory rate 29. EKG was a sinus tachycardia with no acute ST changes. WBC 9.2, hemoglobin 17.3, hematocrit 0.3, platelet count 135. Sodium 134, potassium 5.4, chloride 91, CO2 38, BUN 14 and creatinine 0.52. Blood sugar 114. Liver function tests normal. ProBNP 506. Chest x-ray reveals right pleural effusion. Patient was started on Solu-Medrol, DuoNeb treatments. Patient apparently was agitated in the emergency center and received 2 doses of Ativan IV 1 mg each 20 minutes apart. Patient was brought up to the cardiac stepdown unit and has been sleeping and unable to be awakened. He is currently on BiPAP. 07/05: Patient was transferred into the intensive care yesterday. Patient is on BiPAP with plan to transition to 2 L nasal cannula. Repeat chest x-ray shows significant improvement in the right-sided pleural effusion right basilar airspace opacities remain possibly in the base of atelectasis. Patient is awake and alert this morning. He is able to answer questions appropriately. Shortness of breath is improving from yesterday are prior to admission. Patient has been afebrile, heart rate 77, blood pressure 112/64, pulse ox 95% on 6 L nasal cannula. Repeat blood work reveals WBC 12.3, hemoglobin 17.3 and hematocrit 55.1. Platelet count 127. Sodium 136, potassium 4.3, chloride 84, CO2 47, creatinine 0.55. Blood sugars running between 143 and 180. Blood cul ture no growth after 24 hours. Patient is currently on IV Lasix 40 mg twice daily and prednisone 60 mg IV every 6 hours. Patient is on the CIWA protocol. 07/06 patient examined in the ICU. Patient tenderness or shortness of breath. Is requiring 5 L of oxygen and saturating at 90-92% pulse of 89 respiratory rate 29 blood pressure 119/65 hemoglobin 16.5 hematocrit 54.4 MCV of 100.2 sodium 134 bicarb of 48 creatinine 0.5 chloride 82. Chest x-rays suggest improvement in the right-sided pleural effusion likely atelectasis. Lasix reduced to 40 mg oral daily from IV twice a day. Solu-Medrol switched to prednisone 40 mg by mouth daily. Diamox added it to 50 mg twice daily due to high bicarbonate Patient examined is feeling better. Patient denies any shortness of breath or chest pain. He is alert and answering questions he does wear 2 L of oxygen at bedtime at home and wears oxygen on traveling long distance during the day. Patient can be transferred out of the ICU today. Whitfield catheter to be removed today 07/07 patient examined bedside continues to have shortness of breath. Vitals are stable continues to be hypoxic with the saturation 90% on 5 L. 16 creatinine 0.83 bicarb 39. Patient continues to get diuresis per pulmonary. Patient is a heavy smoker smokes around 1-1/2 packs per day or every day. Chest x-ray suggestive of right lower lobe infiltrate with small right pleural effusion. Does appear comfortable continue current regimen. Is discussed with pulmonary who would like to hold on the CAT scan. 07/08 Patient noted to be sitting up in bed eating breakfast, still has complaints of shortness of breath. He is still hypoxic with saturation of 90% on 5L NC and BIPAP at HS. X-ray shows bilateral lower lobe infiltrate and small effusion with possible mild underlying interstitial venous congestion. He continues on Diamox and Lasix. Hgb 19 with a HCT of 62.4, would benefit from phlebotomy if possible. Blood cultures still show no growth to date. He is currently still in ICU on overflow but will be transferred to regular medical floor when available. Objective - Vital Signs Vital signs: Vital Signs Temp 98.6 F 07/07/20 20:00 Pulse 81 07/08/20 06:00 Resp 20 07/08/20 06:00 BP 132/78 07/08/20 06:00 Pulse Ox 90 L 07/08/20 06:00 Intake & Output 07/07/20 07/08/20 07/08/20 18:59 06:59 18:59 Intake Total 1300 500 Output Total 1050 1650 Balance 250 -1150 Weight 110.2 kg Intake: Oral 1300 500 Output: Urine 1050 1650 Other: Voiding Method Indwelling Catheter Urinal # Voids 1 - Constitutional General appearance: Present: cooperative, no acute distress - EENT Eyes: Present: PERRLA, normal appearance ENT: Present: hearing grossly normal, normal oropharynx - Neck Neck: Present: normal ROM. Absent: lymphadenopathy, thyromegaly Thyroid: bilateral: normal size, negative: enlarged, firm, nodule - Respiratory Respiratory: bilateral: diminished, rhonchi, negative: dullness - Cardiovascular Rhythm: regular Heart sounds: normal: S1, S2 - Gastrointestinal General gastrointestinal: Present: normal bowel sounds. Absent: distended, hepatomegaly, splenomegaly, tenderness - Integumentary Integumentary: Present: normal, normal turgor. Absent: rash - Neurologic Neurologic: Present: CNII-XII intact. Absent: focal deficits - Musculoskeletal Musculoskeletal: Present: generalized weakness, strength equal bilaterally - Psychiatric Psychiatric: Present: A&O x's 3, appropriate affect - Labs CBC & Chem 7: 07/08/20 03:59 07/08/20 03:59 Labs: Abnormal Lab Results - Last 24 Hours (Table) 07/07/20 07/07/20 07/07/20 Range/Units 11:58 16:27 20:49 WBC (3.8-10.6) k/uL RBC (4.30-5.90) m/uL Hgb (13.0-17.5) gm/dL Hct (39.0-53.0) % MCV (80.0-100.0) fL MCHC (31.0-37.0) g/dL Plt Count (150-450) k/uL Neutrophils # (1.3-7.7) k/uL Lymphocytes # (1.0-4.8) k/uL Sodium (137-145) mmol/L Chloride (98-107) mmol/L Carbon Dioxide (22-30) mmol/L Glucose (74-99) mg/dL POC Glucose (mg/dL) 194 H 152 H 125 H (75-99) mg/dL 07/08/20 07/08/20 07/08/20 Range/Units 03:59 03:59 06:47 WBC 12.0 H (3.8-10.6) k/uL RBC 6.19 H (4.30-5.90) m/uL Hgb 19.0 H (13.0-17.5) gm/dL Hct 62.4 H* (39.0-53.0) % MCV 100.7 H (80.0-100.0) fL MCHC 30.4 L (31.0-37.0) g/dL Plt Count 131 L (150-450) k/uL Neutrophils # 10.1 H (1.3-7.7) k/uL Lymphocytes # 0.9 L (1.0-4.8) k/uL Sodium 135 L (137-145) mmol/L Chloride 96 L (98-107) mmol/L Carbon Dioxide 38 H (22-30) mmol/L Glucose 115 H (74-99) mg/dL POC Glucose (mg/dL) 128 H (75-99) mg/dL Microbiology - Last 24 Hours (Table) 07/03/20 19:24 Blood Culture - Preliminary Blood No Growth after 96 hours Assessment and Plan Plan: 1. Acute on chronic hypoxic and hypercapnic respiratory failure secondary to pleural effusion, COPD exacerbation, obstructive sleep apnea. Consult with pulmonary medicine. Continue DuoNeb treatments 4 times daily and every 4 hours as needed, Lasix 40 mg by mouth daily Solu-Medrol switched to prednisone 40 mg by mouth daily . Pulmicort twice daily. Perforomist twice a day. Incentive spirometer added today 2. Chronic hypoxic respiratory failure. Patient apparently is to wear oxygen around the clock but only uses at nighttime at 2 L, still on 5L via NC at BIPAP at HS 3. Suspected obstructive sleep apnea. will likely need CPAP/BIPAP at HS upon discharge. 4. Polycythemia. Likely secondary to hypoxia. With hemoconcentration from diuresis Peripheral smear ordered folic acid and B12 levels ordered EPO levels ordered, may benefit from phlebotomy 5. Thrombocytopenia of unclear etiology. 6. Somnolent secondary to 2 doses of IV Ativan. Monitor closely 7. Tobacco use and dependence. Nicotine patch. 8. Hyperlipidemia. Continue Lipitor 40 mg at bedtime. 9. Chronic back pain. Continue baclofen at reduced dose of 10 mg at bedtime as needed. [place] 10/325mg Q6 hours as needed 10. Chronic gout. Continue allopurinol. 11. Parkinson's disease. Continue Sinemet one at bedtime. 12. Alcohol abuse. [facility] protocol. 13. DVT prophylaxis. Heparin subcu. 14. GI prophylaxis. Protonix. The above impression and plan of care have been discussed and directed by signing physician. Itzel Chamorro nurse practitioner acting as scribe for signing physician.
--- NOTE | 2020-07-08 08:47 | XR ---
EXAMINATION TYPE: XR chest 1V portable DATE OF EXAM: 07/08/2020 COMPARISON: 07/07/2020 HISTORY: Shortness of breath TECHNIQUE: Single frontal view of the chest is obtained. FINDINGS: Bilateral lower lobe consolidation and small effusion. Heart size is stable and mildly pro minent with hypertrophic and degenerative change of the spine. Arthropathy of the shoulders greater o n the right. Suspicion for underlying hyperinflation and COPD. IMPRESSION: 1. Bilateral lower lobe infiltrate and small effusion likely superimposed on a background of COPD. Mi ld underlying interstitial venous congestion not excluded.
[2020-07-08] MEDS: FORMOTEROL FUMARATE 20 MCG/2 ML NEBU INHALATION SCH ×2 (08:58→20:40)
[2020-07-08] MEDS: BUDESONIDE 0.5 MG/2 ML NEBU INHALATION SCH (08:58)
[2020-07-08] MEDS: IPRATROPIUM-ALBUTEROL 3 ML NEB INHALATION SCH ×4 (08:58→20:40)
[2020-07-08] MEDS: FUROSEMIDE 40 MG TAB PO SCH (10:15)
[2020-07-08] MEDS: acetaZOLAMIDE 250 MG TAB PO SCH ×2 (10:15→23:16)
[2020-07-08] MEDS: predniSONE 20 MG TAB PO SCH (10:15)
[2020-07-08] MEDS: NICOTINE 21MG/24HR PATCH TRANSDERM SCH (10:16)
[2020-07-08] MEDS: HEPARIN SODIUM,PORCINE 5,000 UNIT/ML 1 ML VIAL SQ SCH ×2 (10:16→21:28)
[2020-07-08] MEDS: HYDROcodone/APAP 10-325MG 1 EACH TAB PO PRN ×3 (10:24→21:28)
--- NOTE | 2020-07-08 11:35 | PN ---
PROGRESS NOTE PULMONARY/CRITICAL CARE PROGRESS NOTE: DATE OF SERVICE: 07/08/2020 This is a 59-year-old male who was admitted back on July 03, 2020. He came in initially with a COPD exacerbation, right pleural effusion. He came to the ICU on July 04, 2020 and was placed on BiPAP for impending respiratory failure. His BiPAP settings are 14/5 and 40%. He does use O2 at home for 12 hours a day. His primary cableman is Dr. Ott. Currently, he is on 4 L nasal cannula. He is not receiving any IV fluids. He is quite polycythemic secondary to chronic hypoxemia. He should be phlebotomized. He does have a history of acute on chronic hypoxemic and hypercapnic respiratory failure, secondary to COPD, as well as possible sleep apnea syndrome and Pickwickian syndrome. Current vital signs are reviewed, temperature is 98.6, heart rate 69, respiratory rate 16, blood pressure 120/72 mean 88, saturations are 90% on 4 L. Appears in no acute distress. Lying on his left side. He continued to smoke up until the time he came into the hospital. HEENT: Examination is grossly unremarkable. Nasal O2 in place. NECK: Supple, full range of motion. No adenopathy, thyromegaly or neck vein distention. CARDIOVASCULAR: Examination reveals a regular rhythm and rate. Heart sounds are distant. Heart rate 69. S1, S2 normal. LUNGS: Reveal diffuse inspiratory and expiratory wheezes and rhonchi. Breath sounds are diminished. There is prolongation on forced maneuver. ABDOMEN: Obese, bowel sounds are heard. EXTREMITIES: Intact. No significant edema. SKIN: Without rash. NEUROLOGIC: Examination is nonfocal. LABS: Reviewed. White count 12, hemoglobin 19, hematocrit 62.4, platelet count 131. Sodium 135, potassium 3.6, chloride 96, CO2 38, anion gap is 1, BUN and creatinine were 17 and 0.8. Microbiologic studies are negative. Chest x-ray shows some bilateral lower lobe infiltrates and/or atelectasis. There may be some mild interstitial changes as well. A chest ultrasound on July 04 shows a right-sided pleural effusion 5.9 cm. CURRENT MEDICATIONS: Reviewed. He is currently on Diamox, Lipitor, baclofen, Pulmicort, Sinemet, formoterol, Lasix, heparin, [place], insulin, DuoNeb, Ativan p.r.n., nicotine patch, Protonix, prednisone and potassium replacement. ASSESSMENT: 1. Acute on chronic hypoxemic and hypercapnic respiratory failure secondary to chronic obstructive pulmonary disease exacerbation, possible Pickwickian syndrome, and sleep apnea syndrome. 2. A 5.9 cm right pleural effusion, cardiogenic in nature. 3. Acute diastolic congestive heart failure. 4. Acute exacerbation of chronic obstructive pulmonary disease. 5. Sleep apnea syndrome. 6. Pickwickian syndrome. 7. Acute CO2 narcosis with mental status changes and encephalopathy. 8. Polycythemia secondary to chronic hypoxemia. 9. History of tobacco dependence syndrome. 10.Hyperlipidemia. 11.Chronic back pain. 12.Alcoholism and history of alcohol abuse. 13.Chronic gout. 14.Parkinson's disease. PLAN: Currently, the patient is relatively stable here in the unit. His saturations are about 90%, which is appropriate for him. He has a CO2 retainer. The patient will need to be phlebotomized 1 unit. He is polycythemic. The patient can be transferred out to the [address] [place] [address] the unit. Additional recommendations and suggestions are forthcoming. He is getting no IV fluids. The Pulmicort was increased from 0.5-1 mg twice a day. It is mixed with formoterol. He is also on DuoNeb and prednisone. Additional recommendations and suggestions are forthcoming. Prognosis is guarded. MMODL / IJN: [id number] /
[2020-07-08 12:23] LABS: Glucose,Whole Blood 199 mg/dL (75-99)
[2020-07-08 17:10] LABS: Glucose,Whole Blood 252 mg/dL (75-99)
[2020-07-08] MEDS: BUDESONIDE 1 MG/2 ML NEBU INHALATION SCH (20:40)
[2020-07-08 21:03] LABS: Glucose,Whole Blood 359 mg/dL (75-99)
[2020-07-08] MEDS: ATORVASTATIN 40 MG TAB PO SCH (21:28)
[2020-07-08] MEDS: CARBIDOPA-LEVODOPA 25-100 MG 1 EACH TAB PO SCH (21:28)
[2020-07-09 05:34] LABS: Basophils % (A) 0 %; Eosinophils # (A) 0.2 k/uL (0-0.7); Eosinophils % (A) 1 %; HGB 17.9 gm/dL (13.0-17.5); Hypochromasia Moderate; Lymphocytes # (A) 1.2 k/uL (1.0-4.8); Lymphocytes % (A) 8 %; MCHC 31.1 g/dL (31.0-37.0); MCV 99.7 fL (80.0-100.0); Mean Platelet Volume 8.9; Monocytes # (A) 0.7 k/uL (0-1.0); Monocytes % (A) 5 %; Neutrophils # (A) 12.2 k/uL (1.3-7.7); Neutrophils % (A) 84 %; Platelet Count 132 k/uL (150-450); Poikilocytosis Slight; RBC 5.76 m/uL (4.30-5.90); WBC 14.5 k/uL (3.8-10.6)
[2020-07-09 05:39] LABS: HCT 57.5 % (39.0-53.0)
[2020-07-09 05:46] LABS: ALT 14 U/L (4-49); AST 26 U/L (17-59); African American GFR (CKD) >90 (>60 ml/min/1.73 sqM); Albumin 3.5 g/dL (3.5-5.0); Alkaline Phosphatase 91 U/L (38-126); Anion Gap 6 mmol/L; Blood Urea Nitrogen 18 mg/dL (9-20); Calcium 8.5 mg/dL (8.4-10.2); Carbon Dioxide 30 mmol/L (22-30); Chloride 99 mmol/L (98-107); Glucose 108 mg/dL (74-99); Non-African American GFR(CKD) >90 (>60 ml/min/1.73 sqM); Potassium 3.6 mmol/L (3.5-5.1); Sodium 135 mmol/L (137-145); Total Bilirubin 1.3 mg/dL (0.2-1.3); Total Protein 6.9 g/dL (6.3-8.2)
[2020-07-09] MEDS: PANTOPRAZOLE 40 MG TABLET PO SCH (06:30)
[2020-07-09] MEDS: INSULIN ASPART (NovoLOG) 100 UNIT/ML VIAL SQ SCH ×7 (06:30→22:02)
[2020-07-09] MEDS: HYDROcodone/APAP 10-325MG 1 EACH TAB PO PRN ×3 (06:36→20:44)
[2020-07-09 06:51] LABS: Glucose,Whole Blood 95 mg/dL (75-99)
[2020-07-09] MEDS: FORMOTEROL FUMARATE 20 MCG/2 ML NEBU INHALATION SCH ×2 (07:29→20:14)
[2020-07-09] MEDS: IPRATROPIUM-ALBUTEROL 3 ML NEB INHALATION SCH ×4 (07:29→20:15)
[2020-07-09] MEDS: BUDESONIDE 1 MG/2 ML NEBU INHALATION SCH ×2 (07:29→20:14)
[2020-07-09] MEDS ORDERED: POTASSIUM CHLORIDE ER 20 MEQ TAB.ER PO SCH (08:00)
[2020-07-09] MEDS: predniSONE 20 MG TAB PO SCH (08:01)
[2020-07-09] MEDS: FUROSEMIDE 40 MG TAB PO SCH (08:01)
[2020-07-09] MEDS: HEPARIN SODIUM,PORCINE 5,000 UNIT/ML 1 ML VIAL SQ SCH ×2 (08:01→22:01)
[2020-07-09] MEDS: NICOTINE 21MG/24HR PATCH TRANSDERM SCH (08:01)
[2020-07-09] MEDS: acetaZOLAMIDE 250 MG TAB PO SCH ×2 (08:02→22:01)
--- NOTE | 2020-07-09 08:12 | XR ---
EXAMINATION TYPE: XR chest 1V portable DATE OF EXAM: 07/09/2020 COMPARISON: Prior chest x-ray 07/08/2020 HISTORY: Abnormal chest x-ray, assess lungs, COPD TECHNIQUE: Single frontal view of the chest is obtained. FINDINGS: Some improvement in visualization of left hemidiaphragm is noted in the interval. Persiste nt blunting of the right costophrenic angle noted. Heart size is stable. There is thoracic spondylosi s. IMPRESSION: Some slight interval improvement in aeration at the lung bases.
--- NOTE | 2020-07-09 11:17 | P.PN ---
Subjective Progress Note Date: 07/09/20 This is a 59-year-old obese male patient of Dr. Mcgarry and Dr. ROSALBA Ott with past medical history of COPD, possible alpha-1 antitrypsin deficiency--will need to clarify, probable obstructive sleep apnea on oxygen at night, tobacco use and dependence, daily alcohol use, chronic back pain. Patient apparently developed increasing difficulty with breathing and EMS was called to his home phone pulse ox to be 60. Patient had some recent white or brown sputum production. Patient was afebrile, heart rate 110, blood pressure 151/78, pulse ox 93%, respiratory rate 29. EKG was a sinus tachycardia with no acute ST changes. WBC 9.2, hemoglobin 17.3, hematocrit 0.3, platelet count 135. Sodium 134, potassium 5.4, chloride 91, CO2 38, BUN 14 and creatinine 0.52. Blood sugar 114. Liver function tests normal. ProBNP 506. Chest x-ray reveals right pleural effusion. Patient was started on Solu-Medrol, DuoNeb treatments. Patient apparently was agitated in the emergency center and received 2 doses of Ativan IV 1 mg each 20 minutes apart. Patient was brought up to the cardiac stepdown unit and has been sleeping and unable to be awakened. He is currently on BiPAP. 07/05: Patient was transferred into the intensive care yesterday. Patient is on BiPAP with plan to transition to 2 L nasal cannula. Repeat chest x-ray shows significant improvement in the right-sided pleural effusion right basilar airspace opacities remain possibly in the base of atelectasis. Patient is awake and alert this morning. He is able to answer questions appropriately. Shortness of breath is improving from yesterday are prior to admission. Patient has been afebrile, heart rate 77, blood pressure 112/64, pulse ox 95% on 6 L nasal cannula. Repeat blood work reveals WBC 12.3, hemoglobin 17.3 and hematocrit 55.1. Platelet count 127. Sodium 136, potassium 4.3, chloride 84, CO2 47, creatinine 0.55. Blood sugars running between 143 and 180. Blood culture no growth after 24 hours. Patient is currently on IV Lasix 40 mg twice daily and prednisone 60 mg IV every 6 hours. Patient is on the CIWA protocol. 07/06 patient examined in the ICU. Patient tenderness or shortness of breath. Is requiring 5 L of oxygen and saturating at 90-92% pulse of 89 respiratory rate 29 blood pressure 119/65 hemoglobin 16.5 hematocrit 54.4 MCV of 100.2 sodium 134 bicarb of 48 creatinine 0.5 chloride 82. Chest x-rays suggest improvement in the right-sided pleural effusion likely atelectasis. Lasix reduced to 40 mg oral daily from IV twice a day. Solu-Medrol switched to prednisone 40 mg by [facility] daily. Diamox added it to 50 mg twice daily due to high bicarbonate Patient examined is feeling better. Patient denies any shortness of breath or chest pain. He is alert and answering questions he does wear 2 L of oxygen at bedtime at home and wears oxygen on traveling long distance during the day. Patient can be transferred out of the ICU today. Whitfield catheter to be removed today 07/07 patient examined bedside continues to have shortness of breath. Vitals are stable continues to be hypoxic with the saturation 90% on 5 L. 16 creatinine 0.83 bicarb 39. Patient continues to get diuresis per pulmonary. Patient is a heavy smoker smokes around 1-1/2 packs per day or every day. Chest x-ray suggestive of right lower lobe infiltrate with small right pleural effusion. Does appear comfortable continue current regimen. Is discussed with pulmonary who would like to hold on the CAT scan. 07/08 Patient noted to be sitting up in bed eating breakfast, still has complaints of shortness of breath. He is still hypoxic with saturation of 90% on 5L NC and BIPAP at HS. X-ray shows bilateral lower lobe infiltrate and small effusion with possible mild underlying interstitial venous congestion. He continues on Diamox and Lasix. Hgb 19 with a HCT of 62.4, would benefit from phlebotomy if possible. Blood cultures still show no growth to date. He is currently still in ICU on overflow but will be transferred to regular medical floor when available. 07/09. patient examined at bedside, reports breathing is slightly better today. Patient remains on 4 L nasal cannula with oxygen saturation in the low 90s. chest x-ray today showed slight interval improvement in the aeration at the lung bases. blood cultures continued to show no growth. White blood cells 14.5 hemoglobin 17.9, hematocrit 57.5. Patient might benefit from another phlebotomy. spoke with critical care, plan to do overnight pulse ox to qualify patient for possible CPAP. patient will be transferred to medical floor today. vital signs are stable, patient remains afebrile pulse 99, respirations 17, blood pressure 131/87. Constitutional General appearance: Present: cooperative, no acute distress - EENT Eyes: Present: PERRLA, normal appearance ENT: Present: hearing grossly normal, normal oropharynx - Neck Neck: Present: normal ROM. Absent: lymphadenopathy, thyromegaly Thyroid: bilateral: normal size, negative: enlarged, firm, nodule - Respiratory Respiratory: bilateral: diminished throughout, positive rhonchi, negative: dullness - Cardiovascular Rhythm: regular Heart sounds: normal: S1, S2 - Gastrointestinal General gastrointestinal: Present: normal bowel sounds. Absent: distended, hepatomegaly, splenomegaly, tenderness - Integumentary Integumentary: Present: normal, normal turgor. Absent: rash - Neurologic Neurologic: Present: CNII-XII intact. Absent: focal deficits - Musculoskeletal Musculoskeletal: Present: generalized weakness, strength equal bilaterally - Psychiatric Psychiatric: Present: A&O x's 3, appropriate affect Objective - Vital Signs Vital signs: Vital Signs Temp 98.2 F 07/09/20 08:00 Pulse 96 07/09/20 08:00 Resp 17 07/09/20 08:00 BP 131/87 07/09/20 08:00 Pulse Ox 92 L 07/09/20 08:00 Intake & Output 07/08/20 07/09/20 07/09/20 18:59 06:59 18:59 Intake Total 240 480 Output Total 1450 900 Balance -1210 -420 Weight 111.5 kg Intake: Oral 240 480 Output: Urine 1150 900 Other 300 Other: Voiding Method Bedside Commode Bedside Commode Bedside Commode Urinal Urinal Urinal # Voids 1 1 # Bowel Movements 1 - Labs CBC & Chem 7: 07/09/20 05:09 07/09/20 05:09 Labs: Abnormal Lab Results - Last 24 Hours (Table) 07/08/20 07/08/20 07/08/20 Range/Units 12:22 17:08 21:02 WBC (3.8-10.6) k/uL Hgb (13.0-17.5) gm/dL Hct (39.0-53.0) % Plt Count (150-450) k/uL Neutrophils # (1.3-7.7) k/uL Sodium (137-145) mmol/L Glucose (74-99) mg/dL POC Glucose (mg/dL) 199 H 252 H 359 H (75-99) mg/dL 07/09/20 07/09/20 Range/Units 05:09 05:09 WBC 14.5 H (3.8-10.6) k/uL Hgb 17.9 H (13.0-17.5) gm/dL Hct 57.5 H* (39.0-53.0) % Plt Count 132 L (150-450) k/uL Neutrophils # 12.2 H (1.3-7.7) k/uL Sodium 135 L (137-145) mmol/L Glucose 108 H (74-99) mg/dL POC Glucose (mg/dL) (75-99) mg/dL Microbiology - Last 24 Hours (Table) 07/03/20 19:24 Blood Culture - Preliminary Blood No Growth after 120 hours Assessment and Plan Assessment: Plan: 1. Acute on chronic hypoxic and hypercapnic respiratory failure secondary to pleural effusion, COPD exacerbation, obstructive sleep apnea. Consult with pulmonary medicine. Continue DuoNeb treatments 4 times daily and every 4 hours as needed, Lasix 40 mg by mouth daily Solu-Medrol switched to prednisone 40 mg by mouth daily . Pulmicort twice daily. Perforomist twice a day. Incentive spirometer added today. 2. Chronic hypoxic respiratory failure. Patient apparently is to wear oxygen around the clock but only uses at nighttime at 2 L, still on 4L via NC at BIPAP at HS 3. Suspected obstructive sleep apnea. will likely need CPAP/BIPAP at HS upon discharge. 4. Polycythemia. Likely secondary to hypoxia. With hemoconcentration from diuresis Peripheral smear ordered folic acid and B12 levels ordered EPO levels ordered, may benefit from phlebotomy again. 5. Thrombocytopenia of unclear etiology. 6. Somnolent secondary to 2 doses of IV Ativan. Monitor closely 7. Tobacco use and dependence. Nicotine patch. 8. Hyperlipidemia. Continue Lipitor 40 mg at bedtime. 9. Chronic back pain. Continue baclofen at reduced dose of 10 mg at bedtime as needed. [place] 10/325mg Q6 hours as needed 10. Chronic gout. Continue allopurinol. 11. Parkinson's disease. Continue Sinemet one at bedtime. 12. Alcohol abuse. CIWA protocol. 13. DVT prophylaxis. Heparin subcu. 14. GI prophylaxis. Protonix. The above impression and plan of care have been discussed and directed by signing physician. Joan Kyle nurse practitioner acting as scribe for signing physician.
[2020-07-09 11:52] LABS: Glucose,Whole Blood 139 mg/dL (75-99)
--- NOTE | 2020-07-09 14:42 | P.PN ---
Subjective Progress Note Date: 07/09/20 Principal diagnosis: Acute hypoxic and hypercapnic respiratory failure This is a 59-year-old white male with history of COPD, possible alpha-1 antitrypsin deficiency, history of obstructive sleep apnea syndrome, patient uses oxygen at night. History of alcohol abuse, alcoholism, chronic back pain, patient was brought in by EMS early this morning with complaints of increased s hortness of breath. Upon EMS arrival to his house his pulse ox was 60 and the patient was noted to be smoking cigarettes. Patient was evaluated in the ER, and he was noted to have abnormal chest x-ray with right-sided pleural effusion. The patient himself could not give any clear history. Patient was noted to have episodes of extreme agitation in the ER, he was given Ativan IV push 2 and he was admitted to the regular medical floor. I happened to be rounding on the floor at the time shortly after the patient arrived to the medical floor, and I noted the patient was on BiPAP, he was lethargic, intermittently waking up, confused, and his ABG which I ordered showed a pO2 of 61 pCO2 of 104 and pH of 7.27. Chest x-ray showed right-sided pleural effusion and I recommended ultrasound for possible thoracentesis. I have also made arrangements for the patient to be transferred immediately to the ICU. His BiPAP settings were adjusted placed on IPAP of 14 and EPAP of 5 and FiO2 was increased to 45%, and patient was transferred to the ICU minutes after I evaluated the patient. Previous echocardiogram from 2017 was noted to be normal. CT of the chest from 2018 was basically unremarkable. Chest x-ray on this admission showed a moderate sized right-sided pleural effusion which is relatively new. On 07/05/2020 patient seen in follow-up in the intensive care unit. He is awake and alert, he remains on BiPAP support, he's been diuresed, he is a -2 L over the last 24 hours, today's chest x-ray showed significant improvement in the appearance of right-sided pleural effusion right basilar airspace opacities remain possibly on the basis of atelectasis. No fever or chills, patient was given a trial on nasal cannula, on 6 L pulse ox is 95%, his mentation is appropriate, his current severe scale is 3, patient only required 1 mg of Ativan last night. He is fairly cooperative, no agitation, no diaphoresis, no complaints of headaches, no complaints of visual or auditory hallucinations. Vital signs have been stable overnight. Patient remains on IV steroids, nebulized bronchodilators in addition to IV Lasix. His labs have been reviewed, showing Levatol, 12.3, hemoglobin of 17.3, sodium is 136, potassium is 4.3, chloride is 84, CO2 is 47, BUN is 19 and creatinine 0.55. On 07/09/2020 patient seen in follow-up on selective care unit, he is breathing much easier today, he did wear BiPAP support last night, during the day he is on 4 L of oxygen with pulse ox of 91-94%, breathing is comfortable, nonlabored, a few scattered wheezes, no significant congestion, he is been afebrile. He is awake and alert, no signs of delirium tremens, he remains on CIWA scale, he remains on a daily dose of Lasix, and Diamox. Yesterday patient had therapeutic phlebotomy would removal of one unit of blood, today's labs have been reviewed showing white blood cell count of 14.5, hemoglobin is 17.9, and hematocrit of 57.5, and we will remove another unit of blood with phlebotomy today, sodium is 135, and respiratory failure renal profile are unremarkable. Patient is working physical therapy, he sitting up in the chair, tolerating activity well, today's chest x-ray shows some slight improvement in aeration at the lung bases. Based on patient's blood gases, and bicarbonate concentration on his BMP patient has a chronic hypercapnic respiratory failure related to history of COPD, blood gas was completed on 07/04/2020 showing pO2 of 61, pCO2 of 83 and pH of 7.37 and this was done on FiO2 45%, patient's home dose O2 is usually at 2 L, will continue weaning FiO2 to accept O2 saturations between 85-88%. Blood cultures have been negative, patient has had no fever or chills, patient denied any chest pain. Objective - Vital Signs Vital signs: Vital Signs Temp 98.2 F 07/09/20 08:00 Pulse 88 07/09/20 12:37 Resp 17 07/09/20 08:00 BP 131/87 07/09/20 08:00 Pulse Ox 92 L 07/09/20 08:00 Intake & Output 07/08/20 07/09/20 07/09/20 18:59 06:59 18:59 Intake Total 240 480 Output Total 1450 900 Balance -1210 -420 Weight 111.5 kg Intake: Oral 240 480 Output: Urine 1150 900 Other 300 Other: Voiding Method Bedside Commode Bedside Commode Bedside Commode Urinal Urinal Urinal # Voids 1 1 # Bowel Movements 1 - Exam GENERAL EXAM: Alert, very pleasant, 59-year-old white male, currently on 4 L of oxygen with a pulse ox 94% responding to questions appropriately, EYES: Normal reaction of pupils, equal size. Conjunctiva pink, sclera white. NOSE: Clear with pink turbinates. THROAT: No erythema or exudates. NECK: No masses, no JVD, no thyroid enlargement, no adenopathy. CHEST: No chest wall deformity. Symmetrical expansion. LUNGS: Equal air entry with no crackles, wheeze, rhonchi or dullness. CVS: Regular rate and rhythm, normal S1 and S2, no gallops, no murmurs, no rubs ABDOMEN: Soft, nontender. No hepatosplenomegaly, normal bowel sounds, no guarding or rigidity. EXTREMITIES: No clubbing, no edema, no cyanosis, 2+ pulses and upper and lower extremities. MUSCULOSKELETAL: Muscle strength and tone normal. SPINE: No scoliosis or deformity SKIN: No rashes CENTRAL NERVOUS SYSTEM: Alert and oriented -3. No focal deficits, tone is normal in all 4 extremities. PSYCHIATRIC: Alert and oriented -3. Appropriate affect. Intact judgment and insight. - Labs CBC & Chem 7: 07/09/20 05:09 07/09/20 05:09 Labs: Abnormal Lab Results - Last 24 Hours (Table) 07/08/20 07/08/20 07/09/20 Range/Units 17:08 21:02 05:09 WBC 14.5 H (3.8-10.6) k/uL Hgb 17.9 H (13.0-17.5) gm/dL Hct 57.5 H* (39.0-53.0) % Plt Count 132 L (150-450) k/uL Neutrophils # 12.2 H (1.3-7.7) k/uL Sodium (137-145) mmol/L Glucose (74-99) mg/dL POC Glucose (mg/dL) 252 H 359 H (75-99) mg/dL 07/09/20 07/09/20 Range/Units 05:09 11:51 WBC (3.8-10.6) k/uL Hgb (13.0-17.5) gm/dL Hct (39.0-53.0) % Plt Count (150-450) k/uL Neutrophils # (1.3-7.7) k/uL Sodium 135 L (137-145) mmol/L Glucose 108 H (74-99) mg/dL POC Glucose (mg/dL) 139 H (75-99) mg/dL Microbiology - Last 24 Hours (Table) 07/03/20 19:24 Blood Culture - Preliminary Blood No Growth after 120 hours Assessment and Plan Plan: Assessment: #1. Acute on chronic hypoxic and hypercapnic respiratory failure secondary to COPD exacerbation secondary to obesity/hypoventilation syndrome and obstructive sleep apnea and significant right-sided pleural effusion the etiology of which is not clear at this point, however did respond nicely to IV diuretics in the chest x-ray today is improved in terms of right-sided pleural effusion size. Patient required BiPAP support, likely improved, and will be switched to nasal cannula #2. Acute exacerbation of COPD #3. Obstructive sleep apnea syndrome #4. Obesity hypoventilation syndrome #5. Recent pleural effusion, of unknown etiology, responding to IV diuretics #6. Acute CO2 narcosis and acute metabolic encephalopathy secondary to CO2 narcosis secondary to COPD likely exacerbated by administration of benzodiazepines for acute alcohol withdrawal, agitation and restlessness in the emergency department #7. History of tobacco dependence syndrome 8. Dyslipidemia #9. Chronic back pain #10. Alcoholism and history of alcohol abuse, patient consumes 10 beers on a daily basis #11. Chronic gout #12. Parkinson's disease Plan: Continue current medical treatment, oral Lasix, Diamox, nebulized bronchodilators, oral steroids, breathing has improved, patient's blood gases have been reviewed, patient has chronic hypercapnic and hypoxic respiratory failure related to history of advanced COPD, patient would qualify for home BiPAP device and would benefit from home BiPAP device based on his blood gases. Continue weaning FiO2 to maintain O2 sat between 85-88%, patient will also need overnight pulse oximetry study on his home dose O2 a full can maintain his O2 saturations between 85-88% on his usual 2 L of oxygen today. Continue to follow, will remove one additional unit of blood today with a therapeutic phlebotomy. I performed a history & physical examination of the patient and discussed their management with my nurse practitioner, Lizette Yarbrough. I reviewed the nurse practitioner's note and agree with the documented findings and plan of care. Lung sounds are positive for diminished breath sounds in right base. The f indings and the impression was discussed with the patient. I attest to the documentation by the nurse practitioner. Time with Patient: Less than 30
[2020-07-09 17:07] LABS: Glucose,Whole Blood 162 mg/dL (75-99)
[2020-07-09 21:17] LABS: Glucose,Whole Blood 97 mg/dL (75-99)
[2020-07-09] MEDS: ATORVASTATIN 40 MG TAB PO SCH (22:01)
[2020-07-09] MEDS: CARBIDOPA-LEVODOPA 25-100 MG 1 EACH TAB PO SCH (22:01)
[2020-07-09] MEDS: BACLOFEN 10 MG TAB PO PRN (22:01)
[2020-07-10] MEDS: methylPREDNISolone SOD SUCCI 125 MG/2 ML VIAL IV SCH (06:17)
[2020-07-10 07:26] LABS: Glucose,Whole Blood 112 mg/dL (75-99)
[2020-07-10] MEDS: FORMOTEROL FUMARATE 20 MCG/2 ML NEBU INHALATION SCH (07:49)
[2020-07-10] MEDS: BUDESONIDE 1 MG/2 ML NEBU INHALATION SCH (07:49)
[2020-07-10] MEDS: IPRATROPIUM-ALBUTEROL 3 ML NEB INHALATION SCH ×2 (07:49→13:10)
[2020-07-10 08:51] VITALS: TEMP 98.4
[2020-07-10] MEDS: INSULIN ASPART (NovoLOG) 100 UNIT/ML VIAL SQ SCH ×4 (08:51→12:46)
[2020-07-10] MEDS: PANTOPRAZOLE 40 MG TABLET PO SCH (08:52)
[2020-07-10] MEDS: predniSONE 20 MG TAB PO SCH (09:22)
[2020-07-10] MEDS: FUROSEMIDE 40 MG TAB PO SCH (09:22)
[2020-07-10] MEDS: acetaZOLAMIDE 250 MG TAB PO SCH (09:22)
[2020-07-10] MEDS: HEPARIN SODIUM,PORCINE 5,000 UNIT/ML 1 ML VIAL SQ SCH (09:23)
[2020-07-10] MEDS: NICOTINE 21MG/24HR PATCH TRANSDERM SCH (09:23)
[2020-07-10] MEDS: HYDROcodone/APAP 10-325MG 1 EACH TAB PO PRN ×2 (09:23→15:03)
--- NOTE | 2020-07-10 10:50 | P.DS ---
Providers Date of admission: 07/03/20 21:30 Expected date of discharge: 07/10/20 Attending physician: Mckenzie Avalos Consults: 07/04/20 08:41 Consult Physician Routine Consulting Provider: Rachel Garcia Consult Reason/Comments: copd Do you want consulting provider notified?: Yes Primary care physician: [facility] Course: This is a 59-year-old obese male patient of Dr. Mcgarry and Dr. ROSALBA Ott with past medical history of COPD, possible alpha-1 antitrypsin deficiency--will need to clarify, probable obstructive sleep apnea on oxygen at night, tobacco use and dependence, daily alcohol use, chronic back pain. Patient apparently developed increasing difficulty with breathing and EMS was called to his home phone pulse ox to be 60. Patient had some recent white or brown sputum production. Patient was afebrile, heart rate 110, blood pressure 151/78, pulse ox 93%, respiratory rate 29. EKG was a sinus tachycardia with no acute ST changes. WBC 9.2, hemoglobin 17.3, hematocrit 0.3, platelet count 135. Sodium 134, potassium 5.4, chloride 91, CO2 38, BUN 14 and creatinine 0.52. Blood sugar 114. Liver function tests normal. ProBNP 506. Chest x-ray reveals right pleural effusion. Patient was started on Solu-Medrol, DuoNeb treatments. Patient apparently was agitated in the emergency center and received 2 doses of Ativan IV 1 mg each 20 minutes apart. Patient was brought up to the cardiac stepdown unit and has been sleeping and unable to be awakened. He is currently on BiPAP. 07/05: Patient was transferred into the intensive care yesterday. Patient is on BiPAP with plan to transition to 2 L nasal cannula. Repeat chest x-ray shows significant improvement in the right-sided pleural effusion right basilar airspace opacities remain possibly in the base of atelectasis. Patient is awake and alert this morning. He is able to answer questions appropriately. Shortness of breath is improving from yesterday are prior to admission. Patient has been afebrile, heart rate 77, blood pressure 112/64, pulse ox 95% on 6 L nasal cannula. Repeat blood work reveals WBC 12.3, hemoglobin 17.3 and hematocrit 55.1. Platelet count 127. Sodium 136, potassium 4.3, chloride 84, CO2 47, creatinine 0.55. Blood sugars running between 143 and 180. Blood culture no growth after 24 hours. Patient is currently on IV Lasix 40 mg twice daily and prednisone 60 mg IV every 6 hours. Patient is on the CICO protocol. 07/06 patient examined in the ICU. Patient tenderness or shortness of breath. Is requiring 5 L of oxygen and saturating at 90-92% pulse of 89 respiratory rate 29 blood pressure 119/65 hemoglobin 16.5 hematocrit 54.4 MCV of 100.2 sodium 134 bicarb of 48 creatinine 0.5 chloride 82. Chest x-rays suggest improvement in the right-sided pleural effusion likely atelectasis. Lasix reduced to 40 mg oral daily from IV twice a day. Solu-Medrol switched to prednisone 40 mg by mouth daily. Diamox added it to 50 mg twice daily due to high bicarbonate Patient examined is feeling better. Patient denies any shortness of breath or chest pain. He is alert and answering questions he does wear 2 L of oxygen at bedtime at home and wears oxygen on traveling long distance during the day. Patient can be transferred out of the ICU today. Whitfield catheter to be removed today 07/07 patient examined bedside continues to have shortness of breath. Vitals are stable continues to be hypoxic with the saturation 90% on 5 L. 16 creatinine 0.83 bicarb 39. Patient continues to get diuresis per pulmonary. Patient is a heavy smoker smokes around 1-1/2 packs per day or every day. Chest x-ray suggestive of right lower lobe infiltrate with small right pleural effusion. Does appear comfortable continue current regimen. Is discussed with pulmonary who would like to hold on the CAT scan. 07/08 Patient noted to be sitting up in bed eating breakfast, still has complaints of shortness of breath. He is still hypoxic with saturation of 90% on 5L NC and BIPAP at HS. X-ray shows bilateral lower lobe infiltrate and small effusion with possible mild underlying interstitial venous congestion. He continues on Diamox and Lasix. Hgb 19 with a HCT of 62.4, would benefit from phlebotomy if possible. Blood cultures still show no growth to date. He is currently still in ICU on overflow but will be transferred to regular medical floor when available. 07/09. patient examined at bedside, reports breathing is slightly better today. Patient remains on 4 L nasal cannula with oxygen saturation in the low 90s. chest x-ray today showed slight interval improvement in the aeration at the lung bases. blood cultures continued to show no growth. White blood cells 14.5 hemoglobin 17.9, hematocrit 57.5. Patient might benefit from another phlebotomy. spoke with critical care, plan to do overnight pulse ox to qualify patient for possible CPAP. patient will be transferred to medical floor today. vital signs are stable, patient remains afebrile pulse 99, respirations 17, blood pressure 131/87. 07/10: Patient examined sitting on edge of bed today reports doing well breathing is improved. Patient remains afebrile, pulse rate 89, respirations 22, blood pressure 132/66, pulse ox 88% on 2 L via nasal cannula. Patient does have home oxygen. Patient had overnight pulse ox performed to qualify for home BiPAP. Plan to discharge home later today after seen by pulmonary and if needed BiPAP equipment. Discharge diagnosis 1. Acute on chronic hypoxic and hypercapnic respiratory failure secondary to pl eural effusion, COPD exacerbation, obstructive sleep apnea. 2. Chronic hypoxic respiratory failure. 3. Suspected obstructive sleep apnea. 4. Polycythemia. 5. Thrombocytopenia 6. Somnolent 7. Tobacco use and dependence. 8. Hyperlipidemia. 9. Chronic back pain. 10. Chronic gout. 11. Parkinson's disease. 12. Alcohol abuse. Patient Condition at Discharge: Stable Plan - Discharge Summary New Discharge Prescriptions: New predniSONE [Deltasone] 10 mg PO DAILY #40 tab acetaZOLAMIDE [Diamox] 250 mg PO BID #60 tab Ipratropium-Albuterol Nebulize [Duoneb 0.5 mg-3 mg/3 ml Soln] 3 ml INHALATION RT-QID #120 ml Nicotine 21Mg/24Hr Patch [Habitrol] 1 patch TRANSDERM DAILY #30 patch Formoterol Fumarate [Perforomist] 20 mcg INHALATION RT-BID #1 nebu Pantoprazole [Protonix] 40 mg PO AC-BRKFST #30 tablet.dr Continue Baclofen [Lioresal] 20 mg PO HS HYDROcodone/APAP 10-325MG [[place] 10-325] 1 tab PO QID Ergocalciferol [Vitamin D2 (DRISDOL)] 50,000 unit PO WE Albuterol Nebulized [Ventolin Nebulized] 2.5 mg INHALATION RT-QID PRN PRN Reason: Shortness Of Breath Simvastatin 40 mg PO HS Naproxen [Naprosyn] 500 mg PO BID Albuterol Inhaler [Ventolin Hfa Inhaler] 2 puff INHALATION RT-QID PRN PRN Reason: Shortness Of Breath Magnesium Oxide [Mag-Ox] 250 mg PO DAILY Carbidopa-Levodopa 25-100 mg [Sinemet 25-100 mg] 1 tab PO HS Allopurinol [Zyloprim] 300 mg PO DAILY Beclomethasone Dip 80 Mcg/Puff [Qvar 80 mcg] 1 puff INHALATION RT-BID Changed Furosemide [Lasix] 40 mg PO AC-BRKFST #0 Discharge Medication List Baclofen [Lioresal] 20 mg PO HS 02/04/15 [History] Albuterol Nebulized [Ventolin Nebulized] 2.5 mg INHALATION RT-QID PRN 05/01/15 [History] Ergocalciferol [Vitamin D2 (DRISDOL)] 50,000 unit PO WE 05/01/15 [History] HYDROcodone/APAP 10-325MG [[place] 10-325] 1 tab PO QID 05/01/15 [History] Albuterol Inhaler [Ventolin Hfa Inhaler] 2 puff INHALATION RT-QID PRN 07/03/20 [History] Allopurinol [Zyloprim] 300 mg PO DAILY 07/03/20 [History] Carbidopa-Levodopa 25-100 mg [Sinemet 25-100 mg] 1 tab PO HS 07/03/20 [History] Magnesium Oxide [Mag-Ox] 250 mg PO DAILY 07/03/20 [History] Naproxen [Naprosyn] 500 mg PO BID 07/03/20 [History] Simvastatin 40 mg PO HS 07/03/20 [History] Beclomethasone Dip 80 Mcg/Puff [Qvar 80 mcg] 1 puff INHALATION RT-BID 07/04/20 [History] Formoterol Fumarate [Perforomist] 20 mcg INHALATION RT-BID #1 nebu 07/10/20 [Rx] Furosemide [Lasix] 40 mg PO -BRKFST #0 07/10/20 [Rx] Ipratropium-Albuterol Nebulize [Duoneb 0.5 mg-3 mg/3 ml Soln] 3 ml INHALATION RT-QID #120 ml 07/10/20 [Rx] Nicotine 21Mg/24Hr Patch [Habitrol] 1 patch TRANSDERM DAILY #30 patch 07/10/20 [Rx] Pantoprazole [Protonix] 40 mg PO AC-BRKFST #30 tablet. 07/10/20 [Rx] acetaZOLAMIDE [Diamox] 250 mg PO BID #60 tab 07/10/20 [Rx] predniSONE [Deltasone] 10 mg PO DAILY #40 tab 07/10/20 [Rx] Follow up Appointment(s)/Referral(s): Chivo Polk DO [Doctor of Osteopathic Medicine] - 07/17/20 1:45 pm Ric Mcgarry DO [Primary Care Provider] - 07/17/20 8:30 am Discharge Disposition: HOME WITH HOME HEALTH SERVICES
[2020-07-10 12:22] LABS: Glucose,Whole Blood 113 mg/dL (75-99)
[2020-07-10 12:59] VITALS: BP 143/75; RESP 18
[2020-07-10 13:21] VITALS: PULSE 88
--- NOTE | 2020-07-10 15:27 | P.PN ---
Subjective Progress Note Date: 07/10/20 Principal diagnosis: Acute hypoxic and hypercapnic respiratory failure This is a 59-year-old white male with history of COPD, possible alpha-1 antitrypsin deficiency, history of obstructive sleep apnea syndrome, patient uses oxygen at night. History of alcohol abuse, alcoholism, chronic back pain, patient was brought in by EMS early this morning with complaints of increased s hortness of breath. Upon EMS arrival to his house his pulse ox was 60 and the patient was noted to be smoking cigarettes. Patient was evaluated in the ER, and he was noted to have abnormal chest x-ray with right-sided pleural effusion. The patient himself could not give any clear history. Patient was noted to have episodes of extreme agitation in the ER, he was given Ativan IV push 2 and he was admitted to the regular medical floor. I happened to be rounding on the floor at the time shortly after the patient arrived to the medical floor, and I noted the patient was on BiPAP, he was lethargic, intermittently waking up, confused, and his ABG which I ordered showed a pO2 of 61 pCO2 of 104 and pH of 7.27. Chest x-ray showed right-sided pleural effusion and I recommended ultrasound for possible thoracentesis. I have also made arrangements for the patient to be transferred immediately to the ICU. His BiPAP settings were adjusted placed on IPAP of 14 and EPAP of 5 and FiO2 was increased to 45%, and patient was transferred to the ICU minutes after I evaluated the patient. Previous echocardiogram from 2017 was noted to be normal. CT of the chest from 2018 was basically unremarkable. Chest x-ray on this admission showed a moderate sized right-sided pleural effusion which is relatively new. On 07/05/2020 patient seen in follow-up in the intensive care unit. He is awake and alert, he remains on BiPAP support, he's been diuresed, he is a -2 L over the last 24 hours, today's chest x-ray showed significant improvement in the appearance of right-sided pleural effusion right basilar airspace opacities remain possibly on the basis of atelectasis. No fever or chills, patient was given a trial on nasal cannula, on 6 L pulse ox is 95%, his mentation is appropriate, his current severe scale is 3, patient only required 1 mg of Ativan last night. He is fairly cooperative, no agitation, no diaphoresis, no complaints of headaches, no complaints of visual or auditory hallucinations. Vital signs have been stable overnight. Patient remains on IV steroids, nebulized bronchodilators in addition to IV Lasix. His labs have been reviewed, showing Levatol, 12.3, hemoglobin of 17.3, sodium is 136, potassium is 4.3, chloride is 84, CO2 is 47, BUN is 19 and creatinine 0.55. On 07/09/2020 patient seen in follow-up on selective care unit, he is breathing much easier today, he did wear BiPAP support last night, during the day he is on 4 L of oxygen with pulse ox of 91-94%, breathing is comfortable, nonlabored, a few scattered wheezes, no significant congestion, he is been afebrile. He is awake and alert, no signs of delirium tremens, he remains on CIWA scale, he remains on a daily dose of Lasix, and Diamox. Yesterday patient had therapeutic phlebotomy would removal of one unit of blood, today's labs have been reviewed showing white blood cell count of 14.5, hemoglobin is 17.9, and hematocrit of 57.5, and we will remove another unit of blood with phlebotomy today, sodium is 135, and respiratory failure renal profile are unremarkable. Patient is working physical therapy, he sitting up in the chair, tolerating activity well, today's chest x-ray shows some slight improvement in aeration at the lung bases. Based on patient's blood gases, and bicarbonate concentration on his BMP patient has a chronic hypercapnic respiratory failure related to history of COPD, blood gas was completed on 07/04/2020 showing pO2 of 61, pCO2 of 83 and pH of 7.37 and this was done on FiO2 45%, patient's home dose O2 is usually at 2 L, will continue weaning FiO2 to accept O2 saturations between 85-88%. Blood cultures have been negative, patient has had no fever or chills, patient denied any chest pain. On 07/10/2020 patient seen in follow-up on selective care unit. Doing well, breathing easier, currently on 2 L of oxygen 89%, patient does desat with activity, but no acute distress, vital signs have been stable overnight, patient qualified for home BiPAP unit based on his blood gases, patient will likely require home oxygen around the clock at 2-3 L/m. Yesterday patient had another therapeutic phlebotomy and removal of one unit of packed red blood cells, no follow-up CBC today. No BMP, no acute events overnight. Continues on nebulized bronchodilators, oral Lasix. No acute events overnight. Last chest x-ray yesterday showed some slight interval improvement in aeration at the lung bases. No significant cough or congestion or wheezing on today's exam. Doing well, no specific complaints. Objective - Vital Signs Vital signs: Vital Signs Temp 98.4 F 07/10/20 08:00 Pulse 88 07/10/20 13:20 Resp 18 07/10/20 12:00 BP 143/75 07/10/20 12:00 Pulse Ox 89 L 07/10/20 12:00 Intake & Output 07/09/20 07/10/20 07/10/20 18:59 06:59 18:59 Intake Total 240 596 Output Total 500 500 Balance -260 -500 596 Weight 103.5 kg Intake: Oral 240 596 Output: Urine 500 500 Other: Voiding Method Toilet # Voids 2 1 - Exam GENERAL EXAM: Alert, very pleasant, 59-year-old white male, currently on 2 L of oxygen with a pulse ox 89% responding to questions appropriately, EYES: Normal reaction of pupils, equal size. Conjunctiva pink, sclera white. NOSE: Clear with pink turbinates. THROAT: No erythema or exudates. NECK: No masses, no JVD, no thyroid enlargement, no adenopathy. CHEST: No chest wall deformity. Symmetrical expansion. LUNGS: Equal air entry with no crackles, wheeze, rhonchi or dullness. CVS: Regular rate and rhythm, normal S1 and S2, no gallops, no murmurs, no rubs ABDOMEN: Soft, nontender. No hepatosplenomegaly, normal bowel sounds, no guarding or rigidity. EXTREMITIES: No clubbing, no edema, no cyanosis, 2+ pulses and upper and lower extremities. MUSCULOSKELETAL: Muscle strength and tone normal. SPINE: No scoliosis or deformity SKIN: No rashes CENTRAL NERVOUS SYSTEM: Alert and oriented -3. No focal deficits, tone is normal in all 4 extremities. PSYCHIATRIC: Alert and oriented -3. Appropriate affect. Intact judgment and insight. - Labs CBC & Chem 7: 07/09/20 05:09 07/09/20 05:09 Labs: Abnormal Lab Results - Last 24 Hours (Table) 07/09/20 07/10/20 07/10/20 Range/Units 17:05 07:25 12:20 POC Glucose (mg/dL) 162 H 112 H 113 H (75-99) mg/dL Microbiology - Last 24 Hours (Table) 07/03/20 19:24 Blood Culture - Final Blood No Growth after 144 hours Assessment and Plan Plan: Assessment: #1. Acute on chronic hypoxic and hypercapnic respiratory failure secondary to COPD exacerbation secondary to obesity/hypoventilation syndrome and obstructive sleep apnea and significant right-sided pleural effusion the etiology of which is not clear at this point, however did respond nicely to IV diuretics in the chest x-ray today is improved in terms of right-sided pleural effusion size. Patient required BiPAP support, likely improved, was switched to nasal cannula, at 2 L with a pulse of 70%, wearing BiPAP support at night #2. Acute exacerbation of COPD #3. Obstructive sleep apnea syndrome #4. Obesity hypoventilation syndrome #5. Recent pleural effusion, of unknown etiology, responding to IV diuretics #6. Acute CO2 narcosis and acute metabolic encephalopathy secondary to CO2 narcosis secondary to COPD likely exacerbated by administration of benzodiazepines for acute alcohol withdrawal, agitation and restlessness in the emergency department #7. History of tobacco dependence syndrome 8. Dyslipidemia #9. Chronic back pain #10. Alcoholism and history of alcohol abuse, patient consumes 10 beers on a daily basis #11. Chronic gout #12. Parkinson's disease Plan: Continue current medical treatment, patient is doing well, patient qualified for BiPAP support on the basis of diagnosis of advanced COPD with chronic hypoxic and hypercapnic respiratory failure, patient will need home oxygen likely [id number] at 2-3 L/m. Patient had another therapeutic phlebotomy yes terday with removal of 1 unit of packed red blood cells, no acute events overnight, increase activity as tolerated, patient will need outpatient follow- up with Dr. Garcia any office in one week for discharge today I performed a history & physical examination of the patient and discussed their management with my nurse practitioner, Lizette Yarbrough. I reviewed the nurse practitioner's note and agree with the documented findings and plan of care. Lung sounds are positive for diminished breath sounds in right base. The findings and the impression was discussed with the patient. I attest to the documentation by the nurse practitioner. Time with Patient: Less than 30
== END 2020-07-10 15:41 | disposition home health service (06) | DRG 190 ==
LOC: EC 19:01 → 4SSUR 21:30 → 3SCARD 07-04 07:02 → 2SICU 07-04 12:11 → 3SCARD 07-09 08:43 → 3NCARDOBS 07-09 21:59
PROVIDERS: ADMIT Family Medicine; ATTEND Family Medicine
PROC: 5A09457 Assistance with Respiratory Ventilation, 24-96 Consecutive Hours, Continuous Positive Airway Pressure (ICD-10-PCS; principal; 2020-07-03)
PROC: 05HF33Z Insertion of Infusion Device into Left Cephalic Vein, Percutaneous Approach (ICD-10-PCS; 2020-07-04 18:10)
DX: J44.1 Chronic obstructive pulmonary disease with (acute) exacerbation (principal); J96.21 Acute and chronic respiratory failure with hypoxia; J96.22 Acute and chronic respiratory failure with hypercapnia; G93.41 Metabolic encephalopathy; I50.31 Acute diastolic (congestive) heart failure; E66.2 Morbid (severe) obesity with alveolar hypoventilation; F10.239 Alcohol dependence with withdrawal, unspecified; M1A.9XX0 Chronic gout, unspecified, without tophus (tophi); D69.6 Thrombocytopenia, unspecified; D75.1 Secondary polycythemia; Z68.32 Body mass index [BMI] 32.0-32.9, adult; E78.5 Hyperlipidemia, unspecified; R45.1 Restlessness and agitation; F17.210 Nicotine dependence, cigarettes, uncomplicated; G20 Parkinson's disease; G89.29 Other chronic pain; Z79.51 Long term (current) use of inhaled steroids; Z79.899 Other long term (current) drug therapy; M54.9 Dorsalgia, unspecified; Z99.81 Dependence on supplemental oxygen
CPT/HCPCS: 36410; 36415; 36600; 71045; 71046; 76604; 76937; 80048; 80053; 81001; 82607; 82668; 82746; 82805; 83036; 83605; 83880; 85025; 85610; 85730; 87040; 93005; 93306; 94640; 94660; 94760; 94762; 96374; 96375; 96376; 99195; 99285

== ENCOUNTER → 2020-08-16 | Outpatient (CLI) | payer OTHER ==
--- NOTE | 2020-08-18 12:01 | US ---
EXAMINATION TYPE: US prostate transrectal DATE OF EXAM: 08/16/2020 COMPARISON: NONE CLINICAL HISTORY: R97.2 ELEVATED PSA. This examination was performed using the transrectal probe. EXAM MEASUREMENTS: Gland Size: 3.9 x 34.0 x 3.1cm Volume: 24.93ml Predicted PSA: 2.99ng/ml Actual PSA (if available): Total 5.5ng/ml Central Gland calcifications noted. Central Gland cyst seen = 0.4 x 0.4 x 0.4cm. No masses seen in p eripheral zone. Prostate Volume is wnl as is less than 30.0ml. No suspicious lesions are identified. IMPRESSION: No suspicious lesions are identified. Discordant actual PSA and predicted PSA. Correlate clinically. Predicted PSA = volume x 0.12 ng/ml Calculated Volume = 0.5236 x L x W x H
== END | disposition home or self-care (01) ==
LOC: RADUSWWP 08:28
PROVIDERS: ATTEND Family Medicine
DX: R97.20 Elevated prostate specific antigen [PSA] (principal); Z88.8 Allergy status to other drugs, medicaments and biological substances
CPT/HCPCS: 76872